=== PATIENT | male | born 1940 | race Caucasian/White ===

== ENCOUNTER 2017-01-17 10:38 | Day surgery (SDC) | payer MEDICARE, OTHER ==
[~2017-01-17] VITALS: Ht 193 cm; Wt 96.0 kg
[2017-01-17] VITALS (8 sets, daily range): BP systolic 138–153; BP diastolic 74–92; PULSE 73–82; RESP 18–20; TEMP 98.1–98.5; O2SAT 96–98
[~2017-01-17 10:38] MED LIST: AMOX875T20 PO; ASPI325T PO; FLUV25TA PO; LORA-392 PO; PRIN10TA PO; RANI150 PO; SYNT25TA PO
[2017-01-17] MEDS ORDERED: CHOL100025 CHEW (11:09)
[2017-01-17] MEDS ORDERED: RANI150T PO (11:09)
[2017-01-17] MEDS ORDERED: FLUT50SP EACH NARE (11:09)
[2017-01-17] MEDS ORDERED: SERT-132 PO (11:09)
[2017-01-17] MEDS ORDERED: VITA500C9 CHEW (11:09)
[2017-01-17] MEDS ORDERED: APPL188C PO (11:09)
[2017-01-17] MEDS ORDERED: LEVO50TA4 PO (11:09)
[2017-01-17] MEDS ORDERED: COLA100C3 PO (11:09)
[2017-01-17] MEDS ORDERED: DOCU100C PO (11:09)
[2017-01-17] MEDS ORDERED: MIRA50TA PO (11:09)
[2017-01-17] MEDS ORDERED: ASPI81CH CHEW (11:09)
[2017-01-17] MEDS ORDERED: META48.54 (11:09)
[2017-01-17] MEDS ORDERED: FISH1000 PO (11:09)
[2017-01-17] MEDS ORDERED: CARB25TA9 PO (11:09)
[2017-01-17] MEDS ORDERED: CENTCHW4 CHEW (11:09)
[2017-01-17] MEDS ORDERED: VANCOMYCIN 1000 MG/NS 250 ML IV SCH ×2 (11:15)
[2017-01-17] MEDS ORDERED: CHLORHEXIDINE GLUCONATE 2 % 1 PACK (2 CLOTHS) TOPICAL PRN (11:15)
[2017-01-17] MEDS ORDERED: NO Heparin, Lovenox, Coumadin at least 12 hours prior to procedure. PRN (11:15)
[2017-01-17] MEDS ORDERED: ceFAZolin 2 GM PREMIX 50 ML IV SCH (11:15)
[2017-01-17] MEDS ORDERED: SODIUM CHLORID 0.9% 500 ML IV PRN (11:15)
[2017-01-17] MEDS ORDERED: MUPIROCIN 2% OINT 1 APPLIC/GM SYR NASAL SCH (11:15)
[2017-01-17] MEDS ORDERED: POVIDONE IODINE 5% (ANTISEPSIS KIT) 4 APPLICATIONS EACH NARE PRN (11:15)
[2017-01-17] MEDS ORDERED: INSULIN HUMAN REGULAR 1,000 UNITS/10 ML VIAL SQ PRN (11:15)
[2017-01-17] MEDS ORDERED: CHLORHEXIDINE GLUCONATE 2 % 1 PACK (2 CLOTHS) TOPICAL SCH (11:15)
[2017-01-17] MEDS ORDERED: Hold AM Insulin & AM Hypoglycemic medications in diabetic patients PRN (11:15)
[2017-01-17] MEDS ORDERED: LACTATED RINGER'S 1000 ML IV PRN (11:15)
[2017-01-17] MEDS ORDERED: POVIDONE IODINE 5% (ANTISEPSIS KIT) 4 APPLICATIONS EACH NARE SCH (11:15)
[2017-01-17] MEDS ORDERED: METOPROLOL TARTRATE 25 MG TAB PO PRN (11:15)
[2017-01-17] MEDS ORDERED: DIAZEPAM 5 MG TAB PO ONE (11:30)
[2017-01-17 11:40] LABS: AUTOMATED NEUTROPHIL # 3.1 TH/MM3 (1.8-7.7); BASOPHIL % 0.7 % (0.0-2.0); EOSINOPHIL # 0.3 TH/MM3 (0-0.4); EOSINOPHIL % 5.7 % (0.0-4.0); HEMO FLAGS DIFF FINAL; LYMPH % 19.3 % (9.0-44.0); LYMPHOCYTE # 0.9 TH/MM3 (1.0-4.8); MEAN CORPUSCULAR HEMOGLOBIN 29.3 PG (27.0-34.0); MONO % 11.7 % (0.0-8.0); NEUT % 62.6 % (16.0-70.0); PLATELET COUNT 131 TH/MM3 (150-450); RED BLOOD COUNT 4.27 MIL/MM3 (4.50-5.90); RED CELL DISTRIBUTION WIDTH 13.9 % (11.6-17.2); WHITE BLOOD COUNT 4.9 TH/MM3 (4.0-11.0)
[2017-01-17 11:48] LABS: APTT (PATIENT) 27.8 SEC (24.3-30.1); PROTHROMBIN TIME - PATIENT 10.5 SEC (9.8-11.6)
[2017-01-17 12:01] LABS: BICARBONATE 29.7 MEQ/L (21.0-32.0); POTASSIUM 4.3 MEQ/L (3.5-5.1)
[2017-01-17] MEDS ORDERED: VANCOMYCIN 500 MG VIAL ONE (12:47)
[2017-01-17] MEDS ORDERED: LIDOCAINE HCL 2% 50 ML VIAL ONE (12:50)
[2017-01-17] MEDS ORDERED: ACETAMINOPHEN/CODEINE 300 MG/30 MG TAB PO PRN (15:15)
[2017-01-17] MEDS ORDERED: MAGNESIUM HYDROXIDE SUSP 30 ML CUP PO PRN (15:15)
[2017-01-17] MEDS ORDERED: ZOLPIDEM TARTRATE 5 MG TAB PO PRN (15:15)
[2017-01-17] MEDS ORDERED: BACITRACIN OINT 0.9 GM PKT TOP PRN (15:15)
[2017-01-17] MEDS ORDERED: ONDANSETRON HCL 4 MG/2 ML VIAL IV PRN (15:15)
--- NOTE | 2017-01-17 16:56 | RADRPT ---
EXAM DATE/TIME: 01/17/2017 15:58 [facility] COMPARISON: No previous studies available for comparison. INDICATIONS : Evaluate for pneumothorax post pacemaker insertion MEDICAL HISTORY : None. SURGICAL HISTORY : None. ENCOUNTER: Initial ACUITY: 1 day PAIN SCORE: 0/10 LOCATION: chest FINDINGS: Pacemaker device is noted with control pack over the left chest. Lungs are focally clear. No pneumoth orax or pleural effusion is evident. Cardiomediastinal contours are satisfactory for moderate rotatio n. CONCLUSION: No pneumothorax post pacer Harvinder Breen MD on January 17, 2017 at 16:53 Board Certified Radiologist. This report was verified electronically.
[2017-01-17] MEDS: ceFAZolin 2 GM PREMIX 50 ML IV SCH (20:31)
[2017-01-18] VITALS (13 sets, daily range): BP systolic 151–154; BP diastolic 83–84; PULSE 71–84; RESP 20; TEMP 97.8; O2SAT 95–96
[2017-01-18] MEDS: ceFAZolin 2 GM PREMIX 50 ML IV SCH (05:19)
--- NOTE | 2017-01-18 11:12 | PD.CARD.PN ---
Subjective Subjective Remarks Patient denies cardiac complains this morning. Dressing removed. Incision site steri strips intact. Device interrogated this morning. (Sadie Napier) Objective Vital Signs / I&O Vital Signs Date Time Temp Pulse Resp B/P Pulse Ox O2 Delivery O2 Flow Rate FiO2 01/18/17 10:00 82 01/18/17 09:00 80 01/18/17 09:00 97.8 75 20 151/84 96 01/18/17 08:00 84 01/18/17 07:00 74 01/18/17 06:29 74 01/18/17 05:00 71 01/18/17 04:12 74 01/18/17 04:10 97.8 77 154/83 95 01/18/17 03:43 72 01/18/17 02:37 74 01/18/17 01:00 79 01/18/17 00:00 78 01/17/17 23:16 73 01/17/17 23:00 98.1 76 138/81 97 01/17/17 22:00 74 01/17/17 21:00 74 01/17/17 20:00 78 01/17/17 19:00 74 01/17/17 19:00 98.1 82 153/92 98 01/17/17 18:00 98.5 76 20 143/74 97 01/17/17 15:22 98 Room Air 01/17/17 11:16 98.5 81 18 148/79 96 I/O 01/17/17 01/17/17 01/17/17 01/18/17 01/18/17 01/18/17 07:00 15:00 23:00 07:00 15:00 23:00 Intake Total 240 ml Output Total 700 ml Balance -460 ml Intake Oral 240 ml Output Urine Total 700 ml Physical Exam GENERAL: Elderly male, sitting up in the bed. NAD. SKIN: Warm and dry. HEAD: Normocephalic. EYES: No scleral icterus. No injection or drainage. NECK: Supple, trachea midline. No JVD or lymphadenopathy. CARDIOVASCULAR: Regular rate and rhythm without murmurs, gallops, or rubs. Dressing removed. Steri strips intact RESPIRATORY: Breath sounds equal bilaterally. No accessory muscle use. GASTROINTESTINAL: Abdomen soft, non-tender, nondistended. MUSCULOSKELETAL: No cyanosis, or edema. BACK: Nontender without obvious deformity. No CVA tenderness. Laboratory Laboratory Tests Test 01/17/17 11:20 White Blood Count 4.9 TH/MM3 Red Blood Count 4.27 MIL/MM3 Hemoglobin 12.5 GM/DL Hematocrit 38.0 % Mean Corpuscular Volume 89.0 FL Mean Corpuscular Hemoglobin 29.3 PG Mean Corpuscular Hemoglobin 33.0 % Concent Red Cell Distribution Width 13.9 % Platelet Count 131 TH/MM3 Mean Platelet Volume 8.2 FL Neutrophils (%) (Auto) 62.6 % Lymphocytes (%) (Auto) 19.3 % Monocytes (%) (Auto) 11.7 % Eosinophils (%) (Auto) 5.7 % Basophils (%) (Auto) 0.7 % Neutrophils # (Auto) 3.1 TH/MM3 Lymphocytes # (Auto) 0.9 TH/MM3 Monocytes # (Auto) 0.6 TH/MM3 Eosinophils # (Auto) 0.3 TH/MM3 Basophils # (Auto) 0.0 TH/MM3 CBC Comment DIFF FINAL Differential Comment Prothrombin Time 10.5 SEC Prothromb Time International 1.0 RATIO Ratio Activated Partial 27.8 SEC Thromboplast Time Sodium Level 139 MEQ/L Potassium Level 4.3 MEQ/L Chloride Level 104 MEQ/L Carbon Dioxide Level 29.7 MEQ/L Anion Gap 5 MEQ/L Blood Urea Nitrogen 19 MG/DL Creatinine 0.96 MG/DL Estimat Glomerular Filtration 76 ML/MIN Rate Random Glucose 94 MG/DL Calcium Level 8.9 MG/DL Imaging Last 72 hours Impressions Chest X-Ray 01/17/17 0000 Signed Impressions: Service Date/Time: January 15:58 - CONCLUSION: No pneumothorax post pacer Harvinder Breen MD (Sadie Napier) Assessment and Plan Assessment and Plan ASSESSMENT 3rd degree AV block, 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 Post procedure CXR negative for PTX PLAN: Ok for discharge Continue home meds Keep incision site clean and DRY. Notify office immediately of any infection concerns Do not life arm above horizontal Follow up in the office soon Assessment and plan discussed with Dr nice (Sadie Napier) Assessment and Plan No Pnx on cxray will see in the next couple of weeks in office (Shamir Nice MD) Sadie Napier Jan 18, 2017 11:12 Shamir Nice MD Jan 19, 2017 13:56
--- NOTE | 2017-01-18 21:34 | EKG ---
Date Performed: 01/17/2017 Time Performed: 15:18:22 PTAGE: 76 years EKG: Paced ventricular rhythm Abnormal ECG PREVIOUS TRACING : 01/17/2017 11.34 DOCTOR: Lincoln Lamb Interpretating Date/Time 01/18/2017 21:33:15
--- NOTE | 2017-01-18 21:34 | EKG ---
Date Performed: 01/17/2017 Time Performed: 11:34:10 PTAGE: 76 years EKG: Sinus rhythm with PAC(s) with 1st degree A-V block Left axis deviation RBBB with left anterior fascicular block S lida previous tracing, no significant change noted Abnormal ECG PREVIOUS TRACING : 10/10/2010 19.12 DOCTOR: Lincoln Lamb Interpretating Date/Time 01/18/2017 21:32:38
--- NOTE | 2017-01-21 09:17 | MP ---
cc: SHAMIR CHAPARRO M.D., DAVID W. M.D. DATE OF SURGERY: 01/17/2017 OPERATION: Dual chamber pacemaker implantation. INDICATIONS FOR PROCEDURE: Symptomatic bradycardia with high grade AV block with near syncopal episodes, dizziness and weakness. CONSENT: consent was obtained and procedure risks of , bleeding, myocardial infarction, perforation, aspiration, pneumothorax, foreseen and unforeseen complications reviewed, The patient fully appeared to understand the risks and benefits. The patient and prepped draped in usual sterile fashion. The left infraclavicular area was anesthetized with Lidocaine using the two stick micropuncture technique with ultrasound. Two guidewires were placed in the venous circulation. The micropuncture guide wire was exchanged for a regular guidewires through the micropuncture dilator. The pacemaker pocket was then fashioned using blunt sharp and cautery dissection. Following this two introducer sheaths were passed over the two guide wires into the venous circulation. Ventricular lead was passed in the right ventricular apex and helical screws were screwed into the apical myocardium. The atrial lead was placed in one position which was found to be unsatisfactory and moved into the area of the left of the right atrial appendage and the helical screw advanced. Satisfactory pacing and sensing parameters were noted in both leads. Both leads were sewn down to pectoralis fascia. The atrial lead had to be repositioned once to get a better sensing and pacing threshold. Following this both leads were connected to respective chamber pulse generator, set screws tightened but not over tightened. The leads were checked again with the pacemaker device and excellent pacing and sensing parameters were noted. CONCLUSION Successful placement of dual-chamber pacemaker. PLAN: We will plan to do a chest x-ray to rule out pneumothorax. The patient will be discharged hopefully tomorrow after being watched overnight, we will follow up with Dr. Abdiaziz Ochoa and the undersigned in due course. Shamir Chaparro MD, FRCP,[facility] DAVIS/reji /2:56 PM /9:13 AM
== END 2017-01-18 12:15 | disposition home or self-care (01) ==
LOC: HDOC 10:38 → HDIC 10:39 → HCIS 18:02 → HDOC 01-18 12:15
PROVIDERS: ATTEND Internal Medicine Cardiovascular Disease
DX: I44.2 Atrioventricular block, complete (principal); I49.5 Sick sinus syndrome; I45.2 Bifascicular block; R42 Dizziness and giddiness; R79.1 Abnormal coagulation profile
CPT/HCPCS: 33208; 71010; 80048; 85025; 85610; 85730; 93005; C1785; C1898; J0690; J3370; J7050

== ENCOUNTER 2017-10-11 16:25 | Emergency (ER) | payer MEDICARE, OTHER ==
[~2017-10-11] VITALS: Ht 177.8 cm; Wt 95.3 kg
[~2017-10-11 16:25] MED LIST changes: -AMOX875T20 PO; +APPL188C PO; +ASPI-516 CHEW; -ASPI325T PO; +CARB25TA9 PO; +CENTCHW4 CHEW; +CHOL100025 CHEW; +COLA100C3 PO; +DOCU100C15 PO; +FISH1000 PO; +FLUT50SP EACH NARE; -FLUV25TA PO; +LEVO50TA4 PO; -LORA-392 PO; +META48.54; +MIRA50TA PO; -PRIN10TA PO; -RANI150 PO; +RANI150T PO; +SERT-132 PO; -SYNT25TA PO; +VITA500C9 CHEW
[2017-10-11 16:31] VITALS: BP 114/64; PULSE 80; RESP 18; TEMP 99; O2SAT 97
[2017-10-11] MEDS ORDERED: APIX5TAB PO (16:46)
[2017-10-11] MEDS ORDERED: ATEN25TA PO (16:46)
--- NOTE | 2017-10-11 17:14 | RADRPT ---
EXAM DATE/TIME: 10/11/2017 16:50 [facility] COMPARISON: CHEST SINGLE AP, January 17, 2017, 15:58. INDICATIONS : Cough. MEDICAL HISTORY : None. SURGICAL HISTORY : Pacemaker. ENCOUNTER: Initial ACUITY: 3 days PAIN SCORE: 0/10 LOCATION: Bilateral chest FINDINGS: Frontal view of the chest demonstrates the lungs to be symmetrically aerated. No focal infiltrates se en. Both hemidiaphragms are well delineated. Moderate cardiomegaly, stable from prior. Descending tho racic aorta is tortuous. Cardiac pacer leads stable in position. CONCLUSION: 1. Stable cardiomegaly. 2. No focal infiltrates seen. Abdiel San MD on October 11, 2017 at 17:10 Board Certified Radiologist. This report was verified electronically.
[2017-10-11] MEDS ORDERED: AZIT250T3 PO (17:26)
[2017-10-11] MEDS ORDERED: BENZ100 PO (17:26)
--- NOTE | 2017-10-11 17:26 | PD ---
HPI Chief Complaint: Cold / Flu Symptoms Time Seen by Provider: 16:56 Travel History International Travel<30 days: No Contact w/Intl Traveler<30days: No Traveled to known affect area: No History of Present Illness HPI 77-year-old male here for evaluation of a cough for 5 days. Producing some sputum today. He denies fever, chills, chest pain, shortness of breath. His primary doctor was unable to see him in the office they referred him here. No sick contacts at home. No foreign travel. Symptom severity is moderate. Symptoms are unrelieved by [id number]-sfejori cough cold symptoms. PFSH Past Medical History Hx Anticoagulant Therapy: Yes (elequis) Anemia: Yes Asthma: No Atrial Fibrillation: Yes Blood Disorders: No Anxiety: Yes Depression: Yes Heart Rhythm Problems: Yes Cancer: No Cardiovascular Problems: Yes High Cholesterol: Yes Chest Pain: No Congestive Heart Failure: No COPD: No Diabetes: No Endocrine: Yes Gastrointestinal Disorders: No GERD: Yes Genitourinary: No Hypertension: Yes Immune Disorder: No Musculoskeletal: Yes (CURRENTLY HAS A BROKEN 5TH TOE ON RIGHT FOOT) Neurologic: Yes ( STATES PT WAS ON SEIZ. 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) Sleep Apnea: No Thyroid Disease: Yes (HYPO) Tetanus Vaccination: < 5 Years Influenza Vaccination: No Past Surgical History Pacemaker: Yes Tonsillectomy: Yes Other Surgery: Yes (PACEMAKER) Social History Alcohol Use: No Tobacco Use: No Substance Use: No Allergies-Medications (Allergen,Severity, Reaction): Coded Allergies: No Known Allergies (Verified Adverse Reaction, Unknown, 10/11/17) Reported Meds & Prescriptions Reported Meds & Active Scripts Active Tessalon Perles (Benzonatate) 100 Mg Cap 100 Mg PO TID PRN 5 Days Azithromycin 250 Mg Tab 250 Mg PO DIRECTED Take 2 tabs (500 mg) on day 1 then 1 tab daily x 4 days. Reported Eliquis (Apixaban) 5 Mg Tab 5 Mg PO BID Atenolol 25 Mg Tab 25 Mg PO DAILY Metamucil (Psyllium Hydrophilic Mucilloid) 48.57 % Pow DAILY Docusate Sodium 100 Mg Cap 100 Mg PO DIRECTED Centrum (Multiple Vitamins W/ Minerals) 1 Chew 1 Tab CHEW BID Fish Oil (Hiddenite-3 Fatty Acids) 1,000 Mg Cap 2,000 Mg PO BID Vitamin D3 (Cholecalciferol) 1,000 Unit Chew 1,000 Mg CHEW DAILY Myrbetriq (Mirabegron) 50 Mg Tab 50 Mg PO DAILY Ranitidine (Ranitidine HCl) 150 Mg Tab 150 Mg PO BID Carbidopa-Levodopa 25-100 Mg Tab 1 Tab PO Q8HR Sertraline (Sertraline HCl) 50 Mg Tab 50 Mg PO HS Levothyroxine (Levothyroxine Sodium) 50 Mcg Tab 50 Mcg PO DAILY Fluticasone Nasal Almyra 50 Mcg/Act Naspr 50 Mcg EACH NARE BID 50 mcg/spray Review of Systems Except as stated in HPI: all other systems reviewed are Neg General / Constitutional: No: Fever Eyes: No: Visual changes HENT: No: Headaches Cardiovascular: No: Chest Pain or Discomfort Respiratory: Positive: Cough Gastrointestinal: No: Abdominal Pain Genitourinary: No: Dysuria Physical Exam Narrative GENERAL: Alert well-developed male. No distress. Nontoxic appearing. SKIN: Warm and dry. HEAD: Atraumatic. Normocephalic. EYES: Pupils equal and round. No scleral icterus. No injection or drainage. ENT: No nasal bleeding or discharge. Mucous membranes pink and moist. NECK: Trachea midline. No JVD. CARDIOVASCULAR: Regular rate and rhythm. RESPIRATORY: No accessory muscle use. Clear to auscultation. Breath sounds equal bilaterally. Patient has a harsh rhonchorous sounding cough. GASTROINTESTINAL: Abdomen soft, non-tender, nondistended. Hepatic and splenic margins not palpable. MUSCULOSKELETAL: Extremities without clubbing, cyanosis, or edema. No obvious deformities. NEUROLOGICAL: Awake and alert. No obvious cranial nerve deficits. Motor grossly within normal limits. PSYCHIATRIC: Appropriate mood and affect; insight and judgment normal. Data Data Last Documented VS Vital Signs Date Time Temp Pulse Resp B/P (MAP) Pulse Ox O2 Delivery O2 Flow Rate FiO2 10/11/17 16:41 Room Air 10/11/17 16:31 99.0 80 18 114/64 (81) 97 Orders Orders Influenzae A/B Antigen (10/11/17 16:41) Chest, Single Ap (10/11/17 ) MDM Medical Decision Making Medical Screen Exam Complete: Yes Emergency Medical Condition: Yes Differential Diagnosis Bronchitis, pneumonia, influenza Narrative Course 77-year-old male here for evaluation of a productive cough. His vital signs are stable. He is nontoxic appearing. He does have a harsh rhonchorous sounding cough. Chest x-ray: Negative for infiltrates Influenza: Negative Given the patient's age and comorbid conditions he will be treated for bronchitis with azithromycin. He is to follow up with his primary doctor for recheck or return if he develops new or worsening symptoms. Diagnosis Primary Impression: Bronchitis Referrals: Primary Care Physician Additional Instructions: Follow-up with your primary doctor. Rest and stay well hydrated. Return if he developed new or worsening symptoms Scripts Benzonatate (Tessalon Perles) 100 Mg Cap 100 MG PO TID Y for COUGH for 5 Days, CAP 0 Refills Prov: Deana Mason 10/11/17 Azithromycin (Azithromycin) 250 Mg Tab 250 MG PO DIRECTED for Infection, #6 TAB 0 Refills Take 2 tabs (500 mg) on day 1 then 1 tab daily x 4 days. Prov: Deana Mason 10/11/17 Disposition: 01 DISCHARGE HOME Condition: Stable Deana Mason Oct 11, 2017 17:26
== END 2017-10-11 17:36 | disposition home or self-care (01) ==
LOC: PHEFT 16:25
DX: J40 Bronchitis, not specified as acute or chronic (principal); E78.00 Pure hypercholesterolemia, unspecified; F32.9 Major depressive disorder, single episode, unspecified; F41.9 Anxiety disorder, unspecified; I10 Essential (primary) hypertension; I48.91 Unspecified atrial fibrillation; K21.9 Gastro-esophageal reflux disease without esophagitis; Z95.0 Presence of cardiac pacemaker
CPT/HCPCS: 71010; 87804; 99284

== ENCOUNTER 2018-06-01 11:44 | Observation (INO) ==
--- NOTE | 2018-06-01 12:14 | ED ---
HPI General Chief complaint: Respiratory Symptoms Stated complaint: Trouble breathing Time Seen by Provider: 06/01/18 12:11 Source: patient Mode of arrival: ambulatory Limitations: no limitations History of Present Illness HPI narrative: Patient is a private patient of Dr. Cole Brennan primary care, patient apparently had sharp chest pain worse with inspiration, felt some shortness of breath as well especially with any type of activity. Was advised to come to the emergency department on Saturday however the patient's daughter was visiting and so he waited until she left for him to come in and be seen in the emergency department. Patient continues to have some dyspnea as well as chest pain worsened by inspiration Onset (ago): day(s) (4) Location: chest Radiation: non-radiation Severity: moderate Severity scale (1-10): 5 Quality: sharp Pain Consistency: intermittent Relieving factors: none Exacerbating factors: other (breathing) Associated symptoms: denies other symptoms Treatments prior to arrival: none Related Data Home Medications Medication Instructions Recorded Confirmed apixaban [Eliquis] 5 mg PO BID 06/01/18 06/01/18 ascorbic acid (vitamin C) [Vitamin 500 mg PO DAILY 06/01/18 06/01/18 C] atenolol 25 mg PO DAILY 06/01/18 06/01/18 clonazepam 0.5 mg PO HS 06/01/18 06/01/18 fluticasone 2 spray INTRANASAL DAILY 06/01/18 06/01/18 furosemide 40 mg PO DAILY 06/01/18 06/01/18 levothyroxine 50 mcg PO DAILY 06/01/18 06/01/18 omega 0-odx-fze-fish oil [Fish Oil] 2,000 mg PO DAILY NEB 06/01/18 06/01/18 potassium chloride 06/01/18 ranitidine HCl 150 mg PO BID 06/01/18 06/01/18 sertraline 50 mg PO DAILY 06/01/18 06/01/18 Allergies Allergy/AdvReac Type Severity Reaction Status Date / Time No Known Allergies Allergy Unverified 06/01/18 12:04 Review of Systems ROS: all other systems reviewed are negative PMFSH History History Provided By: Patient Medical History Medical History Anxiety (Acute) Hypothyroid (Acute) Pacemaker (Acute) Social History Social History Substance History: No History of Abuse Second Hand Smoke Exposure: No Smoking Status: Never smoker How Often Do You Have a Drink Containing Alcohol: Never Immunization History Tetanus Immunization: <5 Years Hx Influenza Vaccine This Season: No Exam Narrative Exam Narrative: GENERAL: Well-nourished, well-developed patient in no apparent distress. SKIN: Warm and dry. HEAD: Atraumatic. Normocephalic. EYES: Pupils equal and round. No scleral icterus. No injection or drainage. ENT: No nasal bleeding or discharge. Mucous membranes pink and moist. NECK: Trachea midline. No JVD. CARDIOVASCULAR: Regular rate and rhythm. no rubs or gallops RESPIRATORY: No accessory muscle use. Clear to auscultation. Breath sounds equal bilaterally. GASTROINTESTINAL: Abdomen soft, non-tender, nondistended. No rebound or guarding MUSCULOSKELETAL: Extremities without clubbing, cyanosis, or edema. No obvious deformities. NEUROLOGICAL: Awake and alert. No obvious cranial nerve deficits. Motor grossly within normal limits. Five out of 5 muscle strength in the arms and legs. Normal speech. PSYCHIATRIC: Appropriate mood and affect; insight and judgment normal. Course Initial Documented Vital Signs Temperature 98 F 06/01/18 11:51 Pulse Rate 80 06/01/18 11:51 Respiratory Rate 20 06/01/18 11:51 Blood Pressure 121/68 06/01/18 11:51 Pulse Oximetry 97 06/01/18 11:51 Last Documented Vital Signs Temperature 98 F 06/01/18 11:51 Pulse Rate 81 06/01/18 12:05 Respiratory Rate 16 06/01/18 12:05 Blood Pressure 130/65 06/01/18 12:05 Pulse Oximetry 97 06/01/18 12:51 Medical Decision Making MDM Narrative Medical decision making narrative: No leukocytosis, no evidence of any left shift, no anemia, decreased platelet count of 137,000 Regulation profile is within normal limits First set of cardiac enzymes are negative Normal kidney liver functions elect lites are all within normal limits CT chest is negative for any pulmonary embolus or pericardial effusion or any pneumonia Medical Screen Exam Complete: Yes Emergency Medical Condition: Yes Differential Diagnosis Differential Diagnosis: STEMI versus non-STEMI versus pulmonary embolus versus pericardial effusion versus pleural effusion versus pneumonia Medical Records Medical records reviewed: Yes I reviewed the patient's medical records. Lab Data Lab results reviewed: Yes I reviewed the patient's lab results. Result diagrams: 06/01/18 12:35 06/01/18 12:35 Lab Results 06/01/18 06/01/18 06/01/18 Range/Units 12:35 12:35 12:35 WBC 5.9 (4.0-11.0) th/mm3 RBC 4.37 L (4.50-5.90) mil/mm3 Hgb 13.0 (13.0-17.0) gm/dL Hct 39.4 (39.0-51.0) % MCV 90.1 (80.0-100.0) fL MCH 29.8 (27.0-34.0) pg MCHC 33.1 (32.0-36.0) % RDW 14.2 (11.6-17.2) % Plt Count 137 L (150-450) th/mm3 MPV 8.7 (7.0-11.0) fL Neut % (Auto) 66.6 (16.0-70.0) % Lymph % (Auto) 18.0 (9.0-44.0) % Pratt % (Auto) 10.5 H (0.0-8.0) % Eos % (Auto) 4.1 H (0.0-4.0) % Baso % (Auto) 0.8 (0.0-2.0) % Neut # (Auto) 4.0 (1.8-7.7) th/mm3 Lymph # (Auto) 1.1 (1.0-4.8) th/mm3 Pratt # (Auto) 0.6 (0.0-0.9) th/mm3 Eos # (Auto) 0.2 (0.0-0.4) th/mm3 Baso # (Auto) 0.0 (0.0-0.2) th/mm3 WBC Differential . Differential Comment Auto diff final PT 10.7 (9.8-11.6) sec INR 1.1 Ratio APTT 29.9 (24.3-30.1) sec Sodium 139 (136-145) meq/L Potassium 4.8 (3.5-5.1) meq/L Chloride 105 (98-107) meq/L Carbon Dioxide 29.6 (21.0-32.0) meq/L Anion Gap 4 L (5-15) meq/L BUN 18 (7-18) mg/dL Creatinine 1.10 (0.60-1.30) mg/dL Estimated GFR 65 L (>89) mL/min Random Glucose 105 (74-106) mg/dL Calcium 8.7 (8.5-10.1) mg/dL Total Bilirubin 0.5 (0.2-1.0) mg/dL AST 22 (15-37) U/L ALT 32 (12-78) U/L Alkaline Phosphatase 73 (45-117) U/L Total Creatine Kinase 121 (39-308) U/L CK-MB (CK-2) 2.2 (0.5-3.6) ng/mL Troponin I Less than 0.02 L (0.02-0.05) ng/mL B-Natriuretic Peptide (0-100) pg/mL Total Protein 7.8 (6.4-8.2) g/dL Albumin 3.5 (3.4-5.0) g/dL 06/01/18 Range/Units 12:35 WBC (4.0-11.0) th/mm3 RBC (4.50-5.90) mil/mm3 Hgb (13.0-17.0) gm/dL Hct (39.0-51.0) % MCV (80.0-100.0) fL MCH (27.0-34.0) pg MCHC (32.0-36.0) % RDW (11.6-17.2) % Plt Count (150-450) th/mm3 MPV (7.0-11.0) fL Neut % (Auto) (16.0-70.0) % Lymph % (Auto) (9.0-44.0) % Pratt % (Auto) (0.0-8.0) % Eos % (Auto) (0.0-4.0) % Baso % (Auto) (0.0-2.0) % Neut # (Auto) (1.8-7.7) th/mm3 Lymph # (Auto) (1.0-4.8) th/mm3 Pratt # (Auto) (0.0-0.9) th/mm3 Eos # (Auto) (0.0-0.4) th/mm3 Baso # (Auto) (0.0-0.2) th/mm3 WBC Differential Differential Comment PT (9.8-11.6) sec INR Ratio APTT (24.3-30.1) sec Sodium (136-145) meq/L Potassium (3.5-5.1) meq/L Chloride (98-107) meq/L Carbon Dioxide (21.0-32.0) meq/L Anion Gap (5-15) meq/L BUN (7-18) mg/dL Creatinine (0.60-1.30) mg/dL Estimated GFR (>89) mL/min Random Glucose (74-106) mg/dL Calcium (8.5-10.1) mg/dL Total Bilirubin (0.2-1.0) mg/dL AST (15-37) U/L ALT (12-78) U/L Alkaline Phosphatase (45-117) U/L Total Creatine Kinase (39-308) U/L CK-MB (CK-2) (0.5-3.6) ng/mL Troponin I (0.02-0.05) ng/mL B-Natriuretic Peptide 86 (0-100) pg/mL Total Protein (6.4-8.2) g/dL Albumin (3.4-5.0) g/dL Imaging Data Radiologist's impression: Chest CTA 06/01/18 12:23 CONCLUSION: 1. No CT evidence for pulmonary artery embolism. 2. Cardiomegaly. 3. Moderate coronary artery calcifications. ECG Data EKG Prior to Arrival: No Attestation: I personally reviewed and interpreted this ECG as follows: Prior ECG tracings: not available for review Interpretation: EKG shows ventricular pacemaker without any evidence of stemi pattern Discharge Plan Discharge Disposition Patient Disposition: 30 Still Patient Discharge Condition Condition: Stable Discharge Details Diagnosis: Chest pain, rule out acute myocardial infarction Physicians Team ED Provider: Ryan Hernandez Primary Care Provider: Abdiaziz Ochoa Rxs /Orders / Referrals /Forms Prescriptions: No Action ranitidine HCl 150 mg Capsule 150 mg PO BID RF: 0 fluticasone 50 mcg/actuation Willis,Suspension 2 spray INTRANASAL DAILY RF: 0 apixaban [Eliquis] 5 mg Tablet 5 mg PO BID RF: 0 furosemide 40 mg Tablet 40 mg PO DAILY RF: 0 clonazepam 0.5 mg Tablet 0.5 mg PO HS RF: 0 atenolol 25 mg Tablet 25 mg PO DAILY RF: 0 potassium chloride 20 mEq Tablet,Er Particles/Crystals RF: 0 ascorbic acid (vitamin C) [Vitamin C] 500 mg Tablet 500 mg PO DAILY RF: 0 sertraline 50 mg Tablet 50 mg PO DAILY RF: 0 omega 2-opc-pru-fish oil [Fish Oil] 1,000 mg (120 mg-180 mg) Capsule 2,000 mg PO DAILY NEB RF: 0 levothyroxine 50 mcg Capsule 50 mcg PO DAILY RF: 0 Status ED Status: With Doctor
[2018-06-01] MEDS ORDERED: Morphine Inj 4 MG/ML Vial IV.PUSH ONE (12:23)
[2018-06-01 13:04] LABS: Baso % (Auto) 0.8 % (0.0-2.0); Eos # (Auto) 0.2 th/mm3 (0.0-0.4); Eos % (Auto) 4.1 % (0.0-4.0); Hematocrit 39.4 % (39.0-51.0); Lymph # (Auto) 1.1 th/mm3 (1.0-4.8); Mean Corpuscular HGB Conc 33.1 % (32.0-36.0); Mean Corpuscular Hemoglobin 29.8 pg (27.0-34.0); Mean Corpuscular Volume 90.1 fL (80.0-100.0); Mean Platelet Volume 8.7 fL (7.0-11.0); Mono # (Auto) 0.6 th/mm3 (0.0-0.9); Mono % (Auto) 10.5 % (0.0-8.0); Neut % (Auto) 66.6 % (16.0-70.0); Platelet Count 137 th/mm3 (150-450); Red Blood Count 4.37 mil/mm3 (4.50-5.90); Red Cell Distribution Width 14.2 % (11.6-17.2); White Blood Count 5.9 th/mm3 (4.0-11.0)
[2018-06-01 13:15] LABS: Activated Partial Thrombo Time 29.9 sec (24.3-30.1); Alanine Aminotransferase 32 U/L (12-78); Albumin 3.5 g/dL (3.4-5.0); Anion Gap 4 meq/L (5-15); Aspartate Aminotransferase 22 U/L (15-37); Blood Urea Nitrogen 18 mg/dL (7-18); Calcium 8.7 mg/dL (8.5-10.1); Carbon Dioxide 29.6 meq/L (21.0-32.0); Chloride 105 meq/L (98-107); Glomerular Filtration Rate 65 mL/min (>89); Glucose,Random 105 mg/dL (74-106); INR 1.1 Ratio; Potassium 4.8 meq/L (3.5-5.1); Prothrombin Time 10.7 sec (9.8-11.6); Sodium 139 meq/L (136-145)
[2018-06-01 13:19] LABS: Alkaline Phosphatase 73 U/L (45-117); Creatine Kinase 121 U/L (39-308); Total Protein 7.8 g/dL (6.4-8.2)
[2018-06-01 13:32] LABS: Creatine Kinase MB 2.2 ng/mL (0.5-3.6)
--- NOTE | 2018-06-01 14:16 | CT ---
EXAM DATE: 06/01/2018 2:05 PM EDT AGE/SEX: 78 years / Male INDICATIONS: Right sided chest pain for three days. CLINICAL DATA: This is the patient's initial encounter. Patient reports that signs and symptoms have been present for 3 days and indicates a pain score of 6/10. MEDICAL/SURGICAL HISTORY: Hypothyroidism. Pacemaker. RADIATION DOSE: 10.05 CTDI (mGy) COMPARISON: POI, CT CHEST W/ CONTRAST, 05/15/2018. . TECHNIQUE: Volumetric scanning was performed using a multi-row detector CT scanner during bolus infu terence of 69 ml Omnipaque 350 (iohexol) nonionic water-soluble contrast as a single exam dose. The burton a was post processed with a variety of visualization algorithms including full volume maximum intensi ty projection and sliding thin slab reformation. Using automated exposure control and adjustment of the mA and/or kV according to patient size, radiation dose was kept as low as reasonably achievable t o obtain optimal diagnostic quality images. DICOM format image data is available electronically for review and comparison. FINDINGS: Pulmonary Arteries: No filling defects are seen in the pulmonary arteries through the segmental vess els. The main pulmonary artery is normal in diameter. Lung: Minimal senescent changes at the lung bases. No significant focal parenchymal abnormality. Pleura: No effusion, significant pleural thickening or pneumothorax. Mediastinum: Dual-lead pacemaker in place. Moderate coronary artery calcifications. Cardiomegaly. No significant pericardial effusion. No significant mediastinal adenopathy. Osseous Structures: Degenerative spondylosis of the thoracic spine. Other: Visulaized upper abdomen is unremarkable. CONCLUSION: 1. No CT evidence for pulmonary artery embolism. 2. Cardiomegaly. 3. Moderate coronary artery calcifications. Electronically signed by: Freddy Herrera MD 06/01/2018 2:15 PM EDT
[2018-06-01] MEDS ORDERED: Acetaminophen 500 MG Tablet PO PRN (15:39)
--- NOTE | 2018-06-01 16:04 | P.HPCA ---
History of Present Illness Primary Care Physician: Abdiaziz Ochoa MD Chief Complaint: Shortness of breath and chest pain History of Present Illness: A 78-year-old male with history of hypertension, hyperlipidemia, atrial fibrillation, pacemaker, sleep apnea that presents to ED with his with complaint of chest pain and shortness of breath has been ongoing for about 6 or 7 months but has worsened recently. More so even over the last week. Was advised to come to the ED about a week ago but did not want to come at that time as his daughter was in town. States that he gets very short of breath after walking about 50 feet. Chest discomfort essentially is always there is a ache. Points to the right side of his chest to look it with the discomfort is. Worse when he takes in a deep breath. Follows . Pacemaker was placed January 2017. States he had a stress test at Dr. Chaparro's office, office H&P prior to the pacemaker placement reports having a nonischemic chemical stress test in 2014. States that he has not really noticed any fluid retention. Denies recent travel. There is family history of CAD. Lifetime non-smoker. - Diagnosis (1) Chest pain (2) Atrial fibrillation (3) Pacemaker (4) Hypertension (5) Hyperlipidemia (6) Sleep apnea Review of Systems General: Patient denies fevers, chills, and recent travel. HEENT: Patient denies headache, sore throat, difficulty swallowing. Cardiovascular: Has the chest discomfort as mentioned above. Denies sensation of heart beating rapidly or irregularly. No syncope. Denies diaphoresis. Respiratory: Shortness of breath for the last 6 months or so but it has worsened more so recently. Chest discomfort is worsened when he takes in a deep breath. Has noticed occasional wheezing. Denies coughing or hemoptysis. GI: Patient denies nausea, vomiting, diarrhea, abdominal pain, bloody stools. Musculoskeletal: Patient denies joint pain or edema. Denies calf pain or edema. Neurovascular: Patient denies numbness, tingling, weakness in extremities. Denies headache. Endocrine: Denies polyuria and polydipsia. Hematologic: Denies easy bruising. Skin: Denies rash or itching. PMFSH - History History Provided By: Patient - Medical History Medical History: Medical History (Last Reviewed 06/01/18 @ 13:53 by Ryan E Lightburn) Anxiety Hypothyroid Pacemaker - Tobacco History Second Hand Smoke Exposure: No Tobacco Use In Past 30 Days: No Smoking Status: Never smoker - Alcohol History How Often Do You Have a Drink Containing Alcohol: Never - Substance Use History Substance History: No History of Abuse - Immunization History Tetanus Immunization: <5 Years Hx Influenza Vaccine This Season: No Medications and Allergies Active Medications: Active Medications Acetaminophen (Tylenol) 500 mg PO Q6H PRN PRN Reason: pain scale 1-5 Hydrocodone Bitart/Acetaminophen ([place] 7.5/325) 1 tab PO Q6H PRN PRN Reason: pain scale 6-10 Albuterol (Duoneb Neb (Prn)) 1 ampul NEB Q4HR NEB PRN PRN Reason: SHORTNESS OF BREATH/WHEEZING Apixaban (Eliquis) 5 mg PO BID FARZAD Ascorbic Acid (Vitamin C) 500 mg PO DAILY FARZAD Atenolol (Tenormin) 25 mg PO DAILY FARZAD Clonazepam (Klonopin) 0.5 mg PO HS FARZAD Clonidine HCl (Catapres) 0.1 mg PO Q6H PRN PRN Reason: SBP >165 OR DBP > 110 Fluticasone Propionate (Flonase Nasal [place]) 2 spray EACH NARE DAILY FARZAD Furosemide (Lasix) 40 mg PO DAILY FARZAD Non-Formulary Medication (Levothyroxine [Levothyroxine]) 50 mcg PO DAILY FARZAD Non-Formulary Medication (Ranitidine Hcl [Ranitidine Hcl]) 150 mg PO BID FARZAD Potassium Chloride (K-Dur) 10 meq PO DAILY FARZAD Sertraline HCl (Zoloft) 50 mg PO DAILY FARZAD Sodium Chloride (Ns Flush) 2 ml IV.FLUSH UNSCH PRN PRN Reason: FLUSH AFTER USING IV ACCESS Last Admin: 06/01/18 12:59 Dose: 2 ml Sodium Chloride (Ns Flush) 2 ml IV.FLUSH BID FARZAD Sodium Chloride (Ns Flush) 2 ml IV.FLUSH PRN PRN PRN Reason: FLUSH AFTER USING IV ACCESS Allergies Allergy/AdvReac Type Severity Reaction Status Date / Time No Known Allergies Allergy Unverified 06/01/18 12:04 Home Medications Medication Instructions Recorded Confirmed Type apixaban [Eliquis] 5 mg PO BID 06/01/18 06/01/18 History ascorbic acid (vitamin C) [Vitamin 500 mg PO DAILY 06/01/18 06/01/18 History C] atenolol 25 mg PO DAILY 06/01/18 06/01/18 History clonazepam 0.5 mg PO HS 06/01/18 06/01/18 History fluticasone 2 spray INTRANASAL DAILY 06/01/18 06/01/18 History furosemide 40 mg PO DAILY 06/01/18 06/01/18 History levothyroxine 50 mcg PO DAILY 06/01/18 06/01/18 History omega 0-vpj-tvo-fish oil [Fish Oil] 2,000 mg PO DAILY NEB 06/01/18 06/01/18 History potassium chloride 06/01/18 History ranitidine HCl 150 mg PO BID 06/01/18 06/01/18 History sertraline 50 mg PO DAILY 06/01/18 06/01/18 History Exam Vital signs: Vital Signs 06/01/18 11:51 06/01/18 12:05 06/01/18 12:51 Temperature 98 F Pulse Rate 80 81 Respiratory Rate 20 16 Blood Pressure 121/68 130/65 Pulse Oximetry 97 98 97 06/01/18 14:35 Temperature Pulse Rate Respiratory Rate Blood Pressure Pulse Oximetry 97 Intake & Output 05/31/18 06/01/18 06/01/18 18:59 06:59 18:59 Weight 97.522 kg Narrative: GENERAL: This is a well-nourished, well-developed patient, in no apparent distress. Patient speaks in clear complete sentences. Patient is pleasant. His is also at the bedside. HEENT: Mild JVD. Left carotid bruit. Head is atraumatic and normocephalic. Neck is supple without lymphadenopathy and trachea is midline. CARDIOVASCULAR: Grade 2 systolic murmur left sternal border. Regular rate and rhythm without gallops, or rubs. RESPIRATORY: Clear to auscultation. Breath sounds equal bilaterally. No wheezes , rales, or rhonchi. Chest wall is nontender. No use of accessory muscles. GASTROINTESTINAL: Abdomen is nontender, nondistended. Abdomen soft. No obvious pulsatile mass or bruit. No CVA tenderness. Strong femoral pulses bilaterally. Normal bowel sounds in all quadrants. MUSCULOSKELETAL: Mild edema bilateral lower extremity. Patient is moving upper and lower extremities freely. No calf tenderness and no Homans sign. Strong pulses in upper and lower extremities. NEUROLOGICAL: Patient is alert and oriented. Cranial nerves 2-12 are grossly intact. No focal deficits and speech is clear. SKIN: No rash and turgor is normal. Results 06/01/18 12:35 06/01/18 12:35 Cardiac Enzymes 06/01/18 06/01/18 Range/Units 12:35 12:35 AST 22 (15-37) U/L CK-MB (CK-2) 2.2 (0.5-3.6) ng/mL Troponin I Less than 0.02 L (0.02-0.05) ng/mL B-Natriuretic Peptide 86 (0-100) pg/mL Coagulation 06/01/18 06/01/18 Range/Units 12:35 12:35 PT 10.7 (9.8-11.6) sec APTT 29.9 (24.3-30.1) sec B-Natriuretic Peptide 86 (0-100) pg/mL CBC 06/01/18 Range/Units 12:35 WBC 5.9 (4.0-11.0) th/mm3 RBC 4.37 L (4.50-5.90) mil/mm3 Hgb 13.0 (13.0-17.0) gm/dL Hct 39.4 (39.0-51.0) % Plt Count 137 L (150-450) th/mm3 Neut # (Auto) 4.0 (1.8-7.7) th/mm3 Lymph # (Auto) 1.1 (1.0-4.8) th/mm3 [place] # (Auto) 0.6 (0.0-0.9) th/mm3 Eos # (Auto) 0.2 (0.0-0.4) th/mm3 Baso # (Auto) 0.0 (0.0-0.2) th/mm3 Comprehensive Metabolic Panel 06/01/18 Range/Units 12:35 Sodium 139 (136-145) meq/L Potassium 4.8 (3.5-5.1) meq/L Chloride 105 (98-107) meq/L Carbon Dioxide 29.6 (21.0-32.0) meq/L BUN 18 (7-18) mg/dL Creatinine 1.10 (0.60-1.30) mg/dL Calcium 8.7 (8.5-10.1) mg/dL AST 22 (15-37) U/L ALT 32 (12-78) U/L Alkaline Phosphatase 73 (45-117) U/L Total Protein 7.8 (6.4-8.2) g/dL Albumin 3.5 (3.4-5.0) g/dL Intake and Output 06/01/18 06/01/18 06/01/18 06:59 14:59 22:59 Other: Weight 97.522 kg Patient Weight 06/02/18 06:59 Weight 97.522 kg EKG interpretations - RI, pacemaker, normal Pacemaker: ventricular pacing w/capture (except when refractory) (EKG reveals ventricular pacing, also atrial fibrillation.) Caprini VTE Risk Assessment Caprini VTE Risk Assessment: Moderate/High Risk (score >= 2) Caprini Risk Assessment Model: Point Value = 1 Point Value = 2 Point Value = 3 Point Value = 5 Age 41-60 Minor surgery BMI > 25 kg/m2 Swollen legs Varicose veins or History of unexplained or recurrent spontaneous Oral contraceptives or hormone replacement Sepsis (< 1 month) Serious lung disease, including pneumonia (< 1 month) Abnormal pulmonary function Acute myocardial infarction Congestive heart failure (< 1 month) History of inflammatory bowel disease Medical patient at bed rest Age 61-74 Arthroscopic surgery Major open surgery (> 45 min) Laparoscopic surgery (> 45 min) Malignancy Confined to bed (> 72 hours) Immobilizing plaster cast Central venous access Age >= 75 History of VTE Family history of VTE Factor V Leiden Prothrombin [id number] Lupus anticoagulant Anticardiolipin antibodies Elevated serum homocysteine Heparin-induced thrombocytopenia Other congenital or acquired thrombophilia Stroke (< 1 month) Elective arthroplasty Hip, pelvis, or leg fracture Acute spinal cord injury (< 1 month) Prophylaxis Regimen: Total Risk Factor Score Risk Level Prophylaxis Regimen 0-1 Low Early ambulation 2 Moderate Order ONE of the following: *Sequential Compression Device (SCD) *Heparin 5000 units SQ BID 3-4 Higher Order ONE of the following medications: *Heparin 5000 units SQ TID *Enoxaparin/Lovenox 40 mg SQ daily (WT < 150 kg, CrCl > 30 mL/min) *Enoxaparin/Lovenox 30 mg SQ daily (WT < 150 kg, CrCl > 10-29 mL/min) *Enoxaparin/Lovenox 30 mg SQ BID (WT < 150 kg, CrCl > 30 mL/min) AND/OR *Sequential Compression Device (SCD) 5 or more Highest Order ONE of the following medications: *Heparin 5000 units SQ TID (Preferred with Epidurals) *Enoxaparin/Lovenox 40 mg SQ daily (WT < 150 kg, CrCl > 30 mL/min) *Enoxaparin/Lovenox 30 mg SQ daily (WT < 150 kg, CrCl > 10-29 mL/min) *Enoxaparin/Lovenox 30 mg SQ BID (WT < 150 kg, CrCl > 30 mL/min) AND *Sequential Compression Device (SCD) Assessment and Plan - Assessment (1) Chest pain Code(s): R07.9 - Chest pain, unspecified Status: Acute (2) Atrial fibrillation Code(s): I48.91 - Unspecified atrial fibrillation Status: Acute (3) Pacemaker Code(s): Z95.0 - Presence of cardiac pacemaker Status: Acute (4) Hypertension Code(s): I10 - Essential (primary) hypertension Status: Acute (5) Hyperlipidemia Code(s): E78.5 - Hyperlipidemia, unspecified Status: Acute (6) Sleep apnea Code(s): G47.30 - Sleep apnea, unspecified Status: Acute - Plan * Chest pain: Patient will continue to have serial cardiac enzymes and EKGs for ruling out purposes. He was seen by Dr. Salinas of cardiology in the chest pain center and believes symptoms may be related to some heart failure. Patient was given Lasix IV 20 mg 1 and continue his p.o. medication. He will spend evening in the chest pain center and will attempt to speak with Dr. Chaparro, likely patient will have a Lexiscan and then if normal would be discharged home with instructions to follow-up with Dr chaparro to optimize medical management. Return to ED for interval issues. * Pacemaker: Continue follow-up with cardiology. * Atrial fibrillation: Patient is on Eliquis. * Hypertension: Continue medication. * Hyperlipidemia: Continue medication. * Sleep apnea: We will have patient on CPAP. Patient is stable at this time. He is agreeable to this plan.
[2018-06-01 17:17] LABS: Creatine Kinase 106 U/L (39-308)
[2018-06-01] MEDS: Ascorbic Acid 500 MG Tablet PO SCH (17:33)
[2018-06-01] MEDS ORDERED: clonazePAM 0.5 MG Tablet PO SCH (21:00)
[2018-06-01] MEDS: Famotidine 20 MG Tablet PO SCH (21:40)
[2018-06-02 01:20] LABS: Creatine Kinase 114 U/L (39-308)
[2018-06-02 04:50] VITALS: RESP 16
[2018-06-02] MEDS ORDERED: Levothyroxine 50 MCG Tablet PO SCH (06:00)
[2018-06-02 08:07] VITALS: BP 110/66; PULSE 82; TEMP 97.6
[2018-06-02 08:11] VITALS: O2SAT 99
[2018-06-02] MEDS: Ascorbic Acid 500 MG Tablet PO SCH (08:57)
[2018-06-02] MEDS: Famotidine 20 MG Tablet PO SCH (08:58)
[2018-06-02] MEDS ORDERED: Atenolol 25 MG Tablet PO SCH (09:00)
[2018-06-02] MEDS ORDERED: Sertraline 50 MG Tablet PO SCH (09:00)
[2018-06-02] MEDS ORDERED: Furosemide 40 MG Tablet PO SCH (09:00)
--- NOTE | 2018-06-02 09:15 | P.PNCA ---
Subjective Interval history: No complaints overnight. Physical Exam Vital signs: Vital Signs 06/01/18 11:51 06/01/18 12:05 06/01/18 12:51 Temperature 98 F Pulse Rate 80 81 Respiratory Rate 20 16 Blood Pressure 121/68 130/65 Pulse Oximetry 97 98 97 06/01/18 14:35 06/01/18 16:30 06/01/18 16:37 Temperature Pulse Rate 80 80 Respiratory Rate 16 Blood Pressure Pulse Oximetry 97 96 06/01/18 17:40 06/01/18 19:05 06/01/18 20:00 Temperature 97.5 F L Pulse Rate 80 80 80 Respiratory Rate 18 18 Blood Pressure 101/61 Pulse Oximetry 96 94 L 06/01/18 23:35 06/02/18 00:00 06/02/18 04:00 Temperature 97.9 F 97.9 F Pulse Rate 80 79 Respiratory Rate 17 16 Blood Pressure 109/61 99/58 L Pulse Oximetry 95 98 95 06/02/18 08:00 06/02/18 08:11 Temperature 97.6 F Pulse Rate 82 Respiratory Rate 16 Blood Pressure 110/66 Pulse Oximetry 98 99 Intake & Output 06/01/18 06/02/18 06/02/18 18:59 06:59 18:59 Output Total 250 / 250 Balance -250 / -250 Weight 97.522 kg 85.9 kg Output: Urine 250 / 250 Other: # Bowel Movements 0 Narrative: Pleasant elderly male easily awakens from sleep in no acute distress. Assessment and Plan - Assessment (1) Chest pain Code(s): R07.9 - Chest pain, unspecified Status: Acute Plan: Call placed to Dr. Chaparro's office for further recommendations. Spoke with Dr. Krysta Paul's PAYamile Winn for discharge today with follow up in office tomorrow at 1030. Patient agreeable to plan of care. Also, discussed with patient's . (2) Atrial fibrillation Code(s): I48.91 - Unspecified atrial fibrillation Status: Acute (3) Pacemaker Code(s): Z95.0 - Presence of cardiac pacemaker Status: Acute (4) Hypertension Code(s): I10 - Essential (primary) hypertension Status: Acute (5) Hyperlipidemia Code(s): E78.5 - Hyperlipidemia, unspecified Status: Acute (6) Sleep apnea Code(s): G47.30 - Sleep apnea, unspecified Status: Acute - Plan * Chest pain: Patient will continue to have serial cardiac enzymes and EKGs for ruling out purposes. He was seen by Dr. Salinas of cardiology in the chest pain center and believes symptoms may be related to some heart failure. Patient was given Lasix IV 20 mg 1 and continue his p.o. medication. He will spend evening in the chest pain center and will attempt to speak with Dr. Chaparro, likely patient will have a Lexiscan and then if normal would be discharged home with instructions to follow-up with Dr chaparro to optimize medical management. Return to ED for interval issues. * Pacemaker: Continue follow-up with cardiology. * Atrial fibrillation: Patient is on Eliquis. * Hypertension: Continue medication. * Hyperlipidemia: Continue medication. * Sleep apnea: We will have patient on CPAP. Patient is stable at this time. He is agreeable to this plan.
--- NOTE | 2018-06-02 14:23 | ECG ---
Date Performed: 06/02/2018 Time Performed: 01:07:48 PTAGE: 78 years EKG: ELECTRONIC VENTRICULAR PACEMAKER ABNORMAL RHYTHM ECG PREVIOUS TRACING : 06/01/2018 21.01 Since previous tracing, no significant change noted DOCTOR: Abdiaziz Cervantes Interpretating Date/Time 06/02/2018 14:23:37
--- NOTE | 2018-06-02 14:26 | ECG ---
Date Performed: 06/01/2018 Time Performed: 21:01:22 PTAGE: 78 years EKG: ELECTRONIC VENTRICULAR PACEMAKER ABNORMAL RHYTHM ECG PREVIOUS TRACING : 06/01/2018 12.06 Since previous tracing, no significant change noted DOCTOR: Abdiaziz Cervantes Interpretating Date/Time 06/02/2018 14:24:56
--- NOTE | 2018-06-02 14:27 | ECG ---
Date Performed: 06/01/2018 Time Performed: 12:06:52 PTAGE: 78 years EKG: ELECTRONIC VENTRICULAR PACEMAKER ABNORMAL RHYTHM ECG PREVIOUS TRACING : 01/17/2017 15.18 Since previous tracing, no significant change noted DOCTOR: Abdiaziz Cervantes Interpretating Date/Time 06/02/2018 14:25:27
== END 2018-06-02 11:10 | disposition home or self-care (01) ==
LOC: NEDA 11:44 → NEPC 11:44 → NEPHCDU 11:44 → NEDA 18:00 → NEPHCDU 18:58

== ENCOUNTER 2018-07-09 00:43 | Observation (INO) ==
[2018-07-09 02:21] LABS: Baso % (Auto) 0.7 % (0.0-2.0); Eos # (Auto) 0.4 th/mm3 (0.0-0.4); Eos % (Auto) 5.6 % (0.0-4.0); Hematocrit 38.2 % (39.0-51.0); Hemoglobin 12.9 gm/dL (13.0-17.0); Lymph # (Auto) 1.3 th/mm3 (1.0-4.8); Lymph % (Auto) 18.3 % (9.0-44.0); Mean Corpuscular HGB Conc 33.7 % (32.0-36.0); Mean Corpuscular Hemoglobin 30.2 pg (27.0-34.0); Mean Corpuscular Volume 89.6 fL (80.0-100.0); Mean Platelet Volume 8.8 fL (7.0-11.0); Mono # (Auto) 0.8 th/mm3 (0.0-0.9); Mono % (Auto) 11.5 % (0.0-8.0); Neut # (Auto) 4.4 th/mm3 (1.8-7.7); Neut % (Auto) 63.9 % (16.0-70.0); Platelet Count 135 th/mm3 (150-450); Red Blood Count 4.27 mil/mm3 (4.50-5.90); Red Cell Distribution Width 15.2 % (11.6-17.2); White Blood Count 6.9 th/mm3 (4.0-11.0)
[2018-07-09 02:38] LABS: Alanine Aminotransferase 62 U/L (12-78); Albumin 3.4 g/dL (3.4-5.0); Anion Gap 11 meq/L (5-15); Aspartate Aminotransferase 57 U/L (15-37); Blood Urea Nitrogen 20 mg/dL (7-18); Calcium 8.2 mg/dL (8.5-10.1); Carbon Dioxide 25.5 meq/L (21.0-32.0); Chloride 105 meq/L (98-107); Glomerular Filtration Rate 56 mL/min (>89); Glucose,Random 102 mg/dL (74-106); Lipase 142 U/L (73-393); Magnesium 1.9 mg/dL (1.5-2.5); Potassium 4.1 meq/L (3.5-5.1); Sodium 141 meq/L (136-145)
[2018-07-09 02:42] LABS: Alkaline Phosphatase 85 U/L (45-117); Total Protein 7.4 g/dL (6.4-8.2); Troponin I 0.03 ng/mL (0.02-0.05)
[2018-07-09 02:46] LABS: INR 1.1 Ratio
[2018-07-09 02:47] LABS: Prothrombin Time 10.8 sec (9.8-11.6)
[2018-07-09 02:55] LABS: Creatine Kinase 100 U/L (39-308)
--- NOTE | 2018-07-09 03:01 | XR ---
EXAM DATE: 07/09/2018 2:03 AM EDT AGE/SEX: 78 years / Male INDICATIONS: Lower chest pain. CLINICAL DATA: This is the patient's initial encounter. Patient reports that signs and symptoms have been present for 1 day and indicates a pain score of 5/10. MEDICAL/SURGICAL HISTORY: None. Pacemaker. COMPARISON: POI, XR CHEST PA AND LAT, 05/06/2018. . FINDINGS: Single AP view the chest. Dual-lead cardiac pacemaker remains in place. Cardiac silhouette is moderat adriano enlarged and unchanged. Lungs are grossly clear. No evidence of pleural effusion or thorax. CONCLUSION: Chronic cardiac silhouette enlargement. No acute cardiopulmonary disease identified. Electronically signed by: Dmitri Lauren MD 07/09/2018 3:00 AM EDT
--- NOTE | 2018-07-09 03:25 | ED ---
HPI General Chief Complaint: Chest Pain Stated Complaint: Cardiac Time Seen by Provider: 07/09/18 02:02 Source: patient Limitations: no limitations History of Present Illness HPI narrative: The patient is a 78 year old male who presents to the [facility] emergency department with a history of chest pain that began prior to arrival. The patient reports that he was preparing for bed when it began at 12: 30 AM. He reports that he was just discharged from the hospital after angioplasty and a stent was placed by Dr. Chaparro. The patient reports that the stent was placed on July 07. The patient reports that the pain is similar to the pain that he had prior to being admitted to the chest pain center. The patient reports that the pain is in the center of his chest and midepigastric area and radiates to bilateral upper quadrants of the abdomen. He reports having associated shortness of breath. He denies having any nausea or diaphoresis. The patient denies taking any aspirin as he reports that he is anticoagulated on Eliquis. On review of systems otherwise, the patient denies having any known recent fevers, cough, congestion, neck pain, diarrhea, urinary symptoms, or neurologic symptoms. Related Data Home Medications Medication Instructions Recorded Confirmed apixaban [Eliquis] 5 mg PO BID 06/01/18 07/09/18 ascorbic acid (vitamin C) [Vitamin 500 mg PO DAILY 06/01/18 07/09/18 C] atenolol 25 mg PO DAILY 06/01/18 07/09/18 clonazepam 0.5 mg PO HS 06/01/18 07/09/18 fluticasone 2 spray INTRANASAL DAILY 06/01/18 07/09/18 furosemide 20 mg PO DAILY 06/01/18 07/09/18 levothyroxine 50 mcg PO DAILY 06/01/18 07/09/18 potassium chloride 10 meq PO DAILY 06/01/18 07/09/18 ranitidine HCl 150 mg PO BID 06/01/18 07/09/18 sertraline 50 mg PO DAILY 06/01/18 07/09/18 Centrum Silver 1 tab PO DAILY 07/07/18 07/09/18 Metamucil 1 packet PO DAILY 07/07/18 07/09/18 Myrbetriq 1 tab PO DAILY 07/07/18 07/09/18 atorvastatin 10 mg PO DAILY 07/07/18 07/09/18 cholecalciferol (vitamin D3) 1,000 unit PO DAILY 07/07/18 07/09/18 [Vitamin D3] aspirin 81 mg PO DAILY 07/09/18 07/09/18 Previous Rx's Medication Instructions Recorded ticagrelor [Brilinta] 90 mg PO BID tab 07/08/18 Allergies Allergy/AdvReac Type Severity Reaction Status Date / Time No Known Allergies Allergy Verified 07/07/18 11:09 Review of Systems ROS: all other systems reviewed are negative [facility] Medical History Medical History Hypothyroidism (Acute) Afib (Acute) Anxiety (Acute) Epilepsy (Acute) GERD (gastroesophageal reflux disease) (Acute) HLD (hyperlipidemia) (Acute) Pacemaker (Acute) SOB (shortness of breath) (Acute) Sleep apnea (Acute) Social History Social History Substance History: No History of Abuse Second Hand Smoke Exposure: No Smoking Status: Never smoker How Often Do You Have a Drink Containing Alcohol: Never Recent Travel in [facility] within the Last 8 Weeks: No Recent Out of Country Travel within the Last 8 Weeks: No Immunization History Tetanus Immunization: <5 Years Hx Influenza Vaccine This Season: No Exam Const General: cooperative, no acute distress and well developed Nutritional Appearance: well nourished Orientation: alert, awake and oriented x3 HENMT Head: normocephalic and atraumatic Nose: no nasal discharge and no epistaxis Mouth: moist mucous membranes Throat: posterior oropharynx normal and uvula midline Eyes Sclera: normal sclerae Pupils: PERRL Neck Neck: no meningeal signs, trachea midline and no JVD Resp Effort & Inspection: no use of accessory muscles Auscultation: clear to auscultation bilaterally Cardio Rate: regular rate Rhythm: regular rhythm Heart Sounds: no gallops, no murmurs and no rubs GI Inspection: non-distended Palpation: soft, no hepatosplenomegaly, no guarding, not rigid and tender ( Reported tenderness on palpation in the right groin near his cardiac catheterization site.) in the RLQ; not in the LLQ, not in the LUQ, not in the RUQ, not at McBurney's point, not periumbilically, not suprapubicly, Whitley's sign negative and with no rebound tenderness Auscultation: normal bowel sounds Back/Spine/Pelvis Back: no CVA tenderness Skin General: dry skin (warm) Neuro General: alert, awake, oriented x3 and other (Grossly nonfocal.) Speech: speech normal Motor: no movement abnormalities noted Extrem General: normal to inspection (2+ pulses in all 4 extremities. No calf tenderness on palpation.), no clubbing, no cyanosis and no edema Psych Mood: congruent mood Affect: normal affect Judgment: judgment good Course Consultations Consultation #1: The patient's case including history, pertinent physical examination findings, and laboratory studies were discussed with Dr. Chase. It was agreed that the patient would be admitted to the hospitalist service. Initial Documented Vital Signs Temperature 98.5 F 07/09/18 00:50 Pulse Rate 80 07/09/18 00:50 Respiratory Rate 14 07/09/18 00:50 Blood Pressure 129/60 07/09/18 00:50 Pulse Oximetry 96 07/09/18 00:50 Last Documented Vital Signs Temperature 97.5 F L 07/09/18 08:13 Pulse Rate 80 07/09/18 08:13 Respiratory Rate 20 07/09/18 08:13 Blood Pressure 143/89 H 07/09/18 08:13 Pulse Oximetry 100 07/09/18 08:13 Medical Decision Making MDM Narrative Medical decision making narrative: During the course of the patient's emergency department visit, the patient's history, examination, and differential diagnosis were reviewed with the patient. The patient was placed on a laboratory monitor with oximetry and frequent blood pressure monitoring. The patient had IV access obtained and blood work sent for analysis. Diagnostic evaluation was started regarding the patient's chest pain. The patient was initially provided aspirin 81 mg p.o. x1, nitroglycerin sublingual every 5 minutes x3 as needed chest pain, nitroglycerin 1 inch to the chest wall. The patient's diagnostic evaluation is remarkable for a white count of 6.9, hemoglobin 12.9, platelets 135 with 11.5 monocytes, PT 10.8, PTT 30, chemistries remarkable for a BUN of 20, GFR 56, calcium 8.2, AST 57, lipase within normal limits, BNP 141. Troponin I is 0.03, CPK 100. Chest x-ray shows chronic cardiac silhouette enlargement, no acute cardiopulmonary disease. I doubt that the patient has a pulmonary embolism as the patient is on Eliquis and was also recently scanned for possible PE on June 01, 2018 and at that time was found to be negative for pulmonary embolism. Given the patient's recent cardiac catheterization with angioplasty and stenting of the RCA, the patient will be admitted to the hospitalist service with consultation to cardiology. The patient's results were discussed with the patient, including the plan of care. I explained that further testing and/ or monitoring is indicated based on the patient's history, examination, and/ or laboratory findings. Therefore, I recommended admission for additional evaluation. The patient expressed understanding and was agreeable with this plan. The patient was admitted to the hospital in guarded condition and sent to a bed under the care of the [facility] service. Medical Screen Exam Complete: Yes Emergency Medical Condition: Yes Differential Diagnosis Differential Diagnosis: Acute coronary syndrome, versus acid reflux, versus anxiety, versus pulmonary embolism Medical Records Medical records reviewed: Yes I reviewed the patient's medical records. Lab Data Lab results reviewed: Yes I reviewed the patient's lab results. Result diagrams: 07/09/18 02:00 07/09/18 02:00 Lab Results 07/09/18 07/09/18 07/09/18 Range/Units 02:00 02:00 02:00 WBC 6.9 (4.0-11.0) th/mm3 RBC 4.27 L (4.50-5.90) mil/mm3 Hgb 12.9 L (13.0-17.0) gm/dL Hct 38.2 L (39.0-51.0) % MCV 89.6 (80.0-100.0) fL MCH 30.2 (27.0-34.0) pg MCHC 33.7 (32.0-36.0) % RDW 15.2 (11.6-17.2) % Plt Count 135 L (150-450) th/mm3 MPV 8.8 (7.0-11.0) fL Neut % (Auto) 63.9 (16.0-70.0) % Lymph % (Auto) 18.3 (9.0-44.0) % [place] % (Auto) 11.5 H (0.0-8.0) % Eos % (Auto) 5.6 H (0.0-4.0) % Baso % (Auto) 0.7 (0.0-2.0) % Neut # (Auto) 4.4 (1.8-7.7) th/mm3 Lymph # (Auto) 1.3 (1.0-4.8) th/mm3 [place] # (Auto) 0.8 (0.0-0.9) th/mm3 Eos # (Auto) 0.4 (0.0-0.4) th/mm3 Baso # (Auto) 0.0 (0.0-0.2) th/mm3 WBC Differential . Differential Comment Auto diff final PT 10.8 (9.8-11.6) sec INR 1.1 Ratio APTT 30.0 (24.3-30.1) sec Sodium 141 (136-145) meq/L Potassium 4.1 (3.5-5.1) meq/L Chloride 105 (98-107) meq/L Carbon Dioxide 25.5 (21.0-32.0) meq/L Anion Gap 11 (5-15) meq/L BUN 20 H (7-18) mg/dL Creatinine 1.25 (0.60-1.30) mg/dL Estimated GFR 56 L (>89) mL/min Random Glucose 102 (74-106) mg/dL Calcium 8.2 L (8.5-10.1) mg/dL Magnesium 1.9 (1.5-2.5) mg/dL Total Bilirubin 0.5 (0.2-1.0) mg/dL AST 57 H (15-37) U/L ALT 62 (12-78) U/L Alkaline Phosphatase 85 (45-117) U/L Total Creatine Kinase 100 (39-308) U/L Troponin I 0.03 (0.02-0.05) ng/mL B-Natriuretic Peptide (0-100) pg/mL Total Protein 7.4 (6.4-8.2) g/dL Albumin 3.4 (3.4-5.0) g/dL Lipase 142 (73-393) U/L 07/09/18 Range/Units 02:00 WBC (4.0-11.0) th/mm3 RBC (4.50-5.90) mil/mm3 Hgb (13.0-17.0) gm/dL Hct (39.0-51.0) % MCV (80.0-100.0) fL MCH (27.0-34.0) pg MCHC (32.0-36.0) % RDW (11.6-17.2) % Plt Count (150-450) th/mm3 MPV (7.0-11.0) fL Neut % (Auto) (16.0-70.0) % Lymph % (Auto) (9.0-44.0) % [place] % (Auto) (0.0-8.0) % Eos % (Auto) (0.0-4.0) % Baso % (Auto) (0.0-2.0) % Neut # (Auto) (1.8-7.7) th/mm3 Lymph # (Auto) (1.0-4.8) th/mm3 [place] # (Auto) (0.0-0.9) th/mm3 Eos # (Auto) (0.0-0.4) th/mm3 Baso # (Auto) (0.0-0.2) th/mm3 WBC Differential Differential Comment PT (9.8-11.6) sec INR Ratio APTT (24.3-30.1) sec Sodium (136-145) meq/L Potassium (3.5-5.1) meq/L Chloride (98-107) meq/L Carbon Dioxide (21.0-32.0) meq/L Anion Gap (5-15) meq/L BUN (7-18) mg/dL Creatinine (0.60-1.30) mg/dL Estimated GFR (>89) mL/min Random Glucose (74-106) mg/dL Calcium (8.5-10.1) mg/dL Magnesium (1.5-2.5) mg/dL Total Bilirubin (0.2-1.0) mg/dL AST (15-37) U/L ALT (12-78) U/L Alkaline Phosphatase (45-117) U/L Total Creatine Kinase (39-308) U/L Troponin I (0.02-0.05) ng/mL B-Natriuretic Peptide 141 H (0-100) pg/mL Total Protein (6.4-8.2) g/dL Albumin (3.4-5.0) g/dL Lipase (73-393) U/L Imaging Data Radiologist's impression: Chest X-Ray 07/09/18 02:03 CONCLUSION: Chronic cardiac silhouette enlargement. No acute cardiopulmonary disease identified. ECG Data Attestation: I personally reviewed and interpreted this ECG as follows: Interpretation: The patient had an EKG done on arrival. The patient's EKG reveals an electronic ventricular paced rhythm. The patient's heart rate is 80 , QRS duration is 186 ms, QTC 496 ms. Discharge Plan Discharge Disposition Patient Disposition: 30 Still Patient Discharge Details Diagnosis: Chest pain, History of coronary angioplasty Physicians Team ED Provider: Leann Koch Primary Care Provider: Abdiaziz Ochoa Attending Provider: Holly Coughlin Other Providers: Shamir Chaparro Status ED Status: Left Department Discharge Information Discharge Date/Time: 07/09/18 05:21
[2018-07-09] MEDS ORDERED: Bisacodyl 10 MG Supp RECTAL PRN (03:50)
[2018-07-09] MEDS: Sod Chloride 0.9% Inj 1,000 ML IV.CONT SCH ×2 (04:31→18:41)
[2018-07-09] MEDS: Levothyroxine 50 MCG Tablet PO SCH (06:02)
--- NOTE | 2018-07-09 08:51 | P.CONCA ---
History of Present Illness Service: Cardiology Consult date: 07/09/18 Requesting Physician: Bam Chase Reason for Consult: Chest pain, recent stent Primary Care Provider: Abdiaziz Ochoa MD Chief Complaint: abdominal pain History of Present Illness: The patient is a 78 year old male known to our practice with a medical history of ASHD s/p RCA stent 07/07/2018 on ASA and Brilinta, atrial fibrillation on Eliquis, heart block s/p st nai dual chamber pacemaker. The patient presented to the hospital yesterday for sudden onset of right upper quadrant pain and lightheadedness. The patient radiates across his right upper quadrat, epigastric region, right lower quadrant and right flank. Pain is worse with a deep breath in. He denies substernal chest pain or pressure, SOB, nausea or vomiting. Right groin has mild amount of ecchymosis. No tenderness to palpation of right groin. No further lightheadedness. Troponin negative. EKG reveals RV paced rhythm. H/H stable. The patient resumed Eliquis last night in addition to ASA and Brilinta Review of Systems All other systems reviewed negative except as stated in HPI PMFSH - History History Provided By: Patient - Medical History Medical History: Medical History (Last Reviewed 07/09/18 @ 18:38 by Bar Peck) History of cardiac pacemaker Hypothyroidism Afib Anxiety Epilepsy GERD (gastroesophageal reflux disease) HLD (hyperlipidemia) Pacemaker SOB (shortness of breath) Sleep apnea - Tobacco History Second Hand Smoke Exposure: No Smoking Status: Never smoker - Alcohol History How Often Do You Have a Drink Containing Alcohol: Never - Substance Use History Substance History: No History of Abuse - Travel History Recent Travel in the [place] Within the Last 8 Weeks: No Recent Travel Out of the Country Within the Last 8 Weeks: No - Immunization History Tetanus Immunization: <5 Years Hx Influenza Vaccine This Season: No Medications and Allergies Allergies Allergy/AdvReac Type Severity Reaction Status Date / Time No Known Allergies Allergy Verified 07/07/18 11:09 Home Medications Medication Instructions Recorded Confirmed Type apixaban [Eliquis] 5 mg PO BID 06/01/18 07/09/18 History ascorbic acid (vitamin C) [Vitamin 500 mg PO DAILY 06/01/18 07/09/18 History C] atenolol 25 mg PO DAILY 06/01/18 07/09/18 History clonazepam 0.5 mg PO HS 06/01/18 07/09/18 History fluticasone 2 spray INTRANASAL DAILY 06/01/18 07/09/18 History furosemide 20 mg PO DAILY 06/01/18 07/09/18 History levothyroxine 50 mcg PO DAILY 06/01/18 07/09/18 History potassium chloride 10 meq PO DAILY 06/01/18 07/09/18 History ranitidine HCl 150 mg PO BID 06/01/18 07/09/18 History sertraline 50 mg PO DAILY 06/01/18 07/09/18 History Centrum Silver 1 tab PO DAILY 07/07/18 07/09/18 History Metamucil 1 packet PO DAILY 07/07/18 07/09/18 History Myrbetriq 1 tab PO DAILY 07/07/18 07/09/18 History atorvastatin 10 mg PO DAILY 07/07/18 07/09/18 History cholecalciferol (vitamin D3) 1,000 unit PO DAILY 07/07/18 07/09/18 History [Vitamin D3] aspirin 81 mg PO DAILY 07/09/18 07/09/18 History Active Medications: Active Medications Al Hydroxide/Mg Hydroxide (Milk Of Magnesia Liq) 30 ml PO Q12H PRN PRN Reason: Mild Constipation Atenolol (Tenormin) 25 mg PO DAILY [facility] Atorvastatin Calcium (Lipitor) 10 mg PO DAILY [facility] Bisacodyl (Dulcolax Supp) 10 mg RECTAL DAILY PRN PRN Reason: SEVERE CONSITIPATION Famotidine (Pepcid) 20 mg PO BID [facility] Furosemide (Lasix) 20 mg PO DAILY [facility] Sodium Chloride (Ns Inj) 1,000 mls @ 65 mls/hr IV.CONT .[id number] [facility] Last Admin: 07/09/18 04:31 Dose: 65 mls/hr Lactulose (Lactulose Liq) 30 ml PO DAILY PRN PRN Reason: SEVERE CONSITIPATION Levothyroxine Sodium (Synthroid) 50 mcg PO DAILY@0700 [facility] Last Admin: 07/09/18 06:02 Dose: 50 mcg Nitroglycerin (Nitrostat Sl) 0.4 mg SL Q5M PRN PRN Reason: CHEST PAIN Last Admin: 07/09/18 02:30 Dose: 0.4 mg Non-Formulary Medication (Myrbetriq) 1 tab PO DAILY [facility] Potassium Chloride (Kcl) 10 meq PO DAILY [facility] Sennosides (Senokot) 17.2 mg PO Q12H PRN PRN Reason: Moderate Constipation Sertraline HCl (Zoloft) 50 mg PO DAILY [facility] Sodium Chloride (Ns Flush) 2 ml IV.FLUSH UNSCH PRN PRN Reason: FLUSH AFTER USING IV ACCESS Ticagrelor (Brilinta) 90 mg PO BID [facility] Exam Vital signs: Vital Signs 07/09/18 00:50 07/09/18 01:01 07/09/18 02:00 Temperature 98.5 F 98.5 F Pulse Rate 80 80 80 Respiratory Rate 14 14 16 Blood Pressure 129/60 125/61 127/76 Pulse Oximetry 96 96 95 07/09/18 04:42 Temperature Pulse Rate 80 Respiratory Rate Blood Pressure 104/59 L Pulse Oximetry 93 L Intake & Output 07/08/18 07/09/18 07/09/18 18:59 06:59 18:59 Intake Total 120 / 120 Balance 120 / 120 Weight 97.34 kg Intake: Other 120 / 120 Other: Other Intake Source Saline Solution # Voids 1 Weight On Admission 97.34 kg - Constitutional no acute distress Comments: Sleep comfortably on arrive, easy to arouse - Routine HEENT Exam Head: Present: normocephalic Eye: Present: EOMI, conjunctivae pink ENT: Present: mucous membranes moist - Routine Neck Exam Present: supple - Routine Respiratory Exam Present: CTA bilaterally - Routine Cardiovascular Exam Present: RRR Comments: PPM, right groin with mild amount of ecchymosis - Routine Abdominal Exam Present: tenderness - Routine Extremities Exam Comments: no edema - Routine Skin Exam Present: ecchymosis - Routine Neurological Exam Present: alert, oriented X3 Results 07/09/18 14:21 07/09/18 02:00 Cardiac Enzymes 07/09/18 07/09/18 Range/Units 02:00 02:00 AST 57 H (15-37) U/L Troponin I 0.03 (0.02-0.05) ng/mL B-Natriuretic Peptide 141 H (0-100) pg/mL Coagulation 07/09/18 07/09/18 Range/Units 02:00 02:00 PT 10.8 (9.8-11.6) sec APTT 30.0 (24.3-30.1) sec B-Natriuretic Peptide 141 H (0-100) pg/mL CBC 07/09/18 Range/Units 02:00 WBC 6.9 (4.0-11.0) th/mm3 RBC 4.27 L (4.50-5.90) mil/mm3 Hgb 12.9 L (13.0-17.0) gm/dL Hct 38.2 L (39.0-51.0) % Plt Count 135 L (150-450) th/mm3 Neut # (Auto) 4.4 (1.8-7.7) th/mm3 Lymph # (Auto) 1.3 (1.0-4.8) th/mm3 [place] # (Auto) 0.8 (0.0-0.9) th/mm3 Eos # (Auto) 0.4 (0.0-0.4) th/mm3 Baso # (Auto) 0.0 (0.0-0.2) th/mm3 Comprehensive Metabolic Panel 07/09/18 Range/Units 02:00 Sodium 141 (136-145) meq/L Potassium 4.1 (3.5-5.1) meq/L Chloride 105 (98-107) meq/L Carbon Dioxide 25.5 (21.0-32.0) meq/L BUN 20 H (7-18) mg/dL Creatinine 1.25 (0.60-1.30) mg/dL Calcium 8.2 L (8.5-10.1) mg/dL AST 57 H (15-37) U/L ALT 62 (12-78) U/L Alkaline Phosphatase 85 (45-117) U/L Total Protein 7.4 (6.4-8.2) g/dL Albumin 3.4 (3.4-5.0) g/dL Intake and Output 07/08/18 07/09/18 07/09/18 22:59 06:59 14:59 Intake Total 120 / 120 Balance 120 / 120 Intake: Other 120 / 120 Other: Other Intake Source Saline Solution # Voids 1 Weight 97.34 kg Weight On Admission 97.34 kg - Imaging and Cardiology Imaging: Impressions Chest X-Ray 07/09/18 02:03 CONCLUSION: Chronic cardiac silhouette enlargement. No acute cardiopulmonary disease identified. EKG results: report reviewed EKG interpretations - MA, pacemaker, normal Pacemaker: ventricular pacing w/capture (except when refractory) Assessment and Plan - Plan Abdominal pain with stable H/H with RUQ, epigastric and RLQ ASHD s/p RCA stent 07/07/2018 on ASA and Brilinta Atrial fibrillation on Eliquis HTN Plan: Hold Eliquis Repeat H/H q 12 Suspect possible small retroperitoneal bleed, will monitor carefully today. Stable cardiac standpoint. Dc tomorrow if remains stable The patient was seen and evaluated by Dr Chaparro who completed face to face encounter, physical exam and participated in evaluation and management. The exam, history, and the medical decision-making described in the above note were completed with the assistance of the mid-level provider. I reviewed and agree with the findings presented. I attest that I had a [id number] encounter with the patient on the same day, and personally performed and documented my assessment and findings in the medical record. Doubt retro peritoneal bleed, seems stable, variable history now chest pain , r/o for MA dc in am if rules out fu with me next week
[2018-07-09] MEDS ORDERED: MYRBETRIQ PO SCH (09:00)
--- NOTE | 2018-07-09 10:04 | P.HP ---
History of Present Illness Service: Hospitalist Primary Care Physician: Abdiaziz Ochoa MD Chief Complaint: right sided chest pain and RUQ pain History of Present Illness: This is a 78-year-old male with past medical history significant for coronary artery disease, ASHD status post RCA stent placement 07/07/[address] Chaparro on aspirin and Brilinta, atrial fibrillation on Eliquis and history of heart block status post [place] Van dual-chamber pacemaker placement who presents to [facility] ED with complaints of right sided chest pain and lightheadedness. Patient states the chest pain radiates to the right upper quadrant. He states that the pain is worse with deep inspiration. He states the pain is similar, although not as intense, as the pain he had prior to his recent stent implant. He denies any associated fever or chills. He denies any substernal chest pain. Denies any shortness of breath, nausea or vomiting. In the ED, initial troponins negative. EKG reveals RV paced rhythm. BNP is slightly elevated 141. CBC unremarkable. Chemistry panel reveals mildly elevated AST 57. Chest x-ray shows chronic cardiac silhouette enlargement with no acute cardiopulmonary process identified. PMFSH - History History Provided By: Patient - Medical History Medical History: Medical History (Last Updated 07/09/18 @ 14:00 by Mariel Diez) History of cardiac pacemaker Hypothyroidism Afib Anxiety Epilepsy GERD (gastroesophageal reflux disease) HLD (hyperlipidemia) Pacemaker SOB (shortness of breath) Sleep apnea - Surgical History Surgical History: Surgical History (Last Reviewed 07/09/18 @ 14:00 by Mariel Diez) H/O heart artery stent - Family History Family History: Family History (Last Updated 07/09/18 @ 14:01 by Mariel Diez) Other Cancer - Social History I have reviewed the patient's Social History: Yes - Tobacco History Second Hand Smoke Exposure: No Smoking Status: Never smoker - Alcohol History How Often Do You Have a Drink Containing Alcohol: Never - Substance Use History Substance History: No History of Abuse - Travel History Recent Travel in the [place] Within the Last 8 Weeks: No Recent Travel Out of the Country Within the Last 8 Weeks: No - Immunization History Tetanus Immunization: <5 Years Hx Influenza Vaccine This Season: No Medications and Allergies Active Medications: Active Medications Al Hydroxide/Mg Hydroxide (Milk Of [place] Liq) 30 ml PO Q12H PRN PRN Reason: Mild Constipation Aspirin (Aspirin Chew) 81 mg PO DAILY [facility] Atenolol (Tenormin) 25 mg PO DAILY [facility] Atorvastatin Calcium (Lipitor) 10 mg PO DAILY [facility] Bisacodyl (Dulcolax Supp) 10 mg RECTAL DAILY PRN PRN Reason: SEVERE CONSITIPATION Famotidine (Pepcid) 20 mg PO BID [facility] Furosemide (Lasix) 20 mg PO DAILY [facility] Sodium Chloride (Ns Inj) 1,000 mls @ 65 mls/hr IV.CONT .[id number] [facility] Last Admin: 07/09/18 04:31 Dose: 65 mls/hr Lactulose (Lactulose Liq) 30 ml PO DAILY PRN PRN Reason: SEVERE CONSITIPATION Levothyroxine Sodium (Synthroid) 50 mcg PO DAILY@0700 [facility] Last Admin: 07/09/18 06:02 Dose: 50 mcg Nitroglycerin (Nitrostat Sl) 0.4 mg SL Q5M PRN PRN Reason: CHEST PAIN Last Admin: 07/09/18 02:30 Dose: 0.4 mg Non-Formulary Medication (Myrbetriq) 1 tab PO DAILY [facility] Potassium Chloride (Kcl) 10 meq PO DAILY [facility] Sennosides (Senokot) 17.2 mg PO Q12H PRN PRN Reason: Moderate Constipation Sertraline HCl (Zoloft) 50 mg PO DAILY [facility] Sodium Chloride (Ns Flush) 2 ml IV.FLUSH UNSCH PRN PRN Reason: FLUSH AFTER USING IV ACCESS Ticagrelor (Brilinta) 90 mg PO BID [facility] Allergies Allergy/AdvReac Type Severity Reaction Status Date / Time No Known Allergies Allergy Verified 07/07/18 11:09 Home Medications Medication Instructions Recorded Confirmed Type apixaban [Eliquis] 5 mg PO BID 06/01/18 07/09/18 History ascorbic acid (vitamin C) [Vitamin 500 mg PO DAILY 06/01/18 07/09/18 History C] atenolol 25 mg PO DAILY 06/01/18 07/09/18 History clonazepam 0.5 mg PO HS 06/01/18 07/09/18 History fluticasone 2 spray INTRANASAL DAILY 06/01/18 07/09/18 History furosemide 20 mg PO DAILY 06/01/18 07/09/18 History levothyroxine 50 mcg PO DAILY 06/01/18 07/09/18 History potassium chloride 10 meq PO DAILY 06/01/18 07/09/18 History ranitidine HCl 150 mg PO BID 06/01/18 07/09/18 History sertraline 50 mg PO DAILY 06/01/18 07/09/18 History Centrum Silver 1 tab PO DAILY 07/07/18 07/09/18 History Metamucil 1 packet PO DAILY 07/07/18 07/09/18 History Myrbetriq 1 tab PO DAILY 07/07/18 07/09/18 History atorvastatin 10 mg PO DAILY 07/07/18 07/09/18 History cholecalciferol (vitamin D3) 1,000 unit PO DAILY 07/07/18 07/09/18 History [Vitamin D3] aspirin 81 mg PO DAILY 07/09/18 07/09/18 History Exam Vital signs: Vital Signs 07/09/18 00:50 07/09/18 01:01 07/09/18 02:00 Temperature 98.5 F 98.5 F Pulse Rate 80 80 80 Respiratory Rate 14 14 16 Blood Pressure 129/60 125/61 127/76 Pulse Oximetry 96 96 95 07/09/18 04:42 07/09/18 08:13 Temperature 97.5 F L Pulse Rate 80 80 Respiratory Rate 20 Blood Pressure 104/59 L 143/89 H Pulse Oximetry 93 L 100 Intake & Output 07/08/18 07/09/18 07/09/18 18:59 06:59 18:59 Intake Total 120 / 120 Balance 120 / 120 Weight 97.34 kg Intake: Other 120 / 120 Other: Other Intake Source Saline Solution # Voids 1 Weight On Admission 97.34 kg Narrative: GENERAL: WDWN elderly male patient, no acute distress. Awake and alert. SKIN: Warm and dry. +mild ecchymosis noted in the right groin HEAD: Atraumatic. Normocephalic. EYES: Pupils equal and round. No scleral icterus. No injection or drainage. ENT: No nasal bleeding or discharge. Mucous membranes pink and moist. NECK: Trachea midline. CARDIOVASCULAR: Regular rate and rhythm. + Mild tenderness elicited to palpation of the right anterior chest wall. RESPIRATORY: No accessory muscle use. Clear to auscultation. Breath sounds equal bilaterally. GASTROINTESTINAL: Abdomen soft, non-tender, nondistended. Hepatic and splenic margins not palpable. MUSCULOSKELETAL: Extremities without clubbing or cyanosis. + 1+ pitting edema bilaterally. NEUROLOGICAL: Awake and alert. No obvious cranial nerve deficits. Motor grossly within normal limits. Able to move all extremities spontaneously. Normal speech. PSYCHIATRIC: Appropriate mood and affect; insight and judgment normal. Results - Labs CBC & Chem 7: 07/09/18 02:00 07/09/18 02:00 Labs: Laboratory Results - last 24 hr 07/09/18 07/09/18 07/09/18 02:00 02:00 02:00 WBC 6.9 RBC 4.27 L Hgb 12.9 L Hct 38.2 L MCV 89.6 MCH 30.2 MCHC 33.7 RDW 15.2 Plt Count 135 L MPV 8.8 Neut % (Auto) 63.9 Lymph % (Auto) 18.3 Murray % (Auto) 11.5 H Eos % (Auto) 5.6 H Baso % (Auto) 0.7 Neut # (Auto) 4.4 Lymph # (Auto) 1.3 Murray # (Auto) 0.8 Eos # (Auto) 0.4 Baso # (Auto) 0.0 WBC Differential . Differential Comment Auto diff final PT 10.8 INR 1.1 APTT 30.0 Sodium 141 Potassium 4.1 Chloride 105 Carbon Dioxide 25.5 Anion Gap 11 BUN 20 H Creatinine 1.25 Estimated GFR 56 L Random Glucose 102 Calcium 8.2 L Magnesium 1.9 Total Bilirubin 0.5 AST 57 H ALT 62 Alkaline Phosphatase 85 Total Creatine Kinase 100 Troponin I 0.03 B-Natriuretic Peptide Total Protein 7.4 Albumin 3.4 Lipase 142 07/09/18 02:00 WBC RBC Hgb Hct MCV MCH MCHC RDW Plt Count MPV Neut % (Auto) Lymph % (Auto) Murray % (Auto) Eos % (Auto) Baso % (Auto) Neut # (Auto) Lymph # (Auto) Murray # (Auto) Eos # (Auto) Baso # (Auto) WBC Differential Differential Comment PT INR APTT Sodium Potassium Chloride Carbon Dioxide Anion Gap BUN Creatinine Estimated GFR Random Glucose Calcium Magnesium Total Bilirubin AST ALT Alkaline Phosphatase Total Creatine Kinase Troponin I B-Natriuretic Peptide 141 H Total Protein Albumin Lipase - Imaging Impressions Chest X-Ray 07/09/18 02:03 CONCLUSION: Chronic cardiac silhouette enlargement. No acute cardiopulmonary disease identified. Caprini VTE Risk Assessment Caprini VTE Risk Assessment: Moderate/High Risk (score >= 2) Caprini Risk Assessment Model: Point Value = 1 Point Value = 2 Point Value = 3 Point Value = 5 Age 41-60 Minor surgery BMI > 25 kg/m2 Swollen legs Varicose veins or History of unexplained or recurrent spontaneous Oral contraceptives or hormone replacement Sepsis (< 1 month) Serious lung disease, including pneumonia (< 1 month) Abnormal pulmonary function Acute myocardial infarction Congestive heart failure (< 1 month) History of inflammatory bowel disease Medical patient at bed rest Age 61-74 Arthroscopic surgery Major open surgery (> 45 min) Laparoscopic surgery (> 45 min) Malignancy Confined to bed (> 72 hours) Immobilizing plaster cast Central venous access Age >= 75 History of VTE Family history of VTE Factor V Leiden Prothrombin [id number] Lupus anticoagulant Anticardiolipin antibodies Elevated serum homocysteine Heparin-induced thrombocytopenia Other congenital or acquired thrombophilia Stroke (< 1 month) Elective arthroplasty Hip, pelvis, or leg fracture Acute spinal cord injury (< 1 month) Prophylaxis Regimen: Total Risk Factor Score Risk Level Prophylaxis Regimen 0-1 Low Early ambulation 2 Moderate Order ONE of the following: *Sequential Compression Device (SCD) *Heparin 5000 units SQ BID 3-4 Higher Order ONE of the following medications: *Heparin 5000 units SQ TID *Enoxaparin/Lovenox 40 mg SQ daily (WT < 150 kg, CrCl > 30 mL/min) *Enoxaparin/Lovenox 30 mg SQ daily (WT < 150 kg, CrCl > 10-29 mL/min) *Enoxaparin/Lovenox 30 mg SQ BID (WT < 150 kg, CrCl > 30 mL/min) AND/OR *Sequential Compression Device (SCD) 5 or more Highest Order ONE of the following medications: *Heparin 5000 units SQ TID (Preferred with Epidurals) *Enoxaparin/Lovenox 40 mg SQ daily (WT < 150 kg, CrCl > 30 mL/min) *Enoxaparin/Lovenox 30 mg SQ daily (WT < 150 kg, CrCl > 10-29 mL/min) *Enoxaparin/Lovenox 30 mg SQ BID (WT < 150 kg, CrCl > 30 mL/min) AND *Sequential Compression Device (SCD) Assessment and Plan - Plan 78-year-old male with past medical history significant for coronary artery disease, ASHD status post RCA stent placement 07/07/[address] Chaparro on aspirin and Brilinta, atrial fibrillation on Eliquis and history of heart block status post [facility] Van dual-chamber pacemaker placement who presents to [facility] ED with complaints of right upper quadrant pain and lightheadedness. 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 Chaparro, appreciate assistance -continue to trend Sanjuana and EKGs -ASA and statin daily -continuous cardiac monitoring -continue on ASA and Brilinta -Nitro prn CP -keep NPO -IVF Atrial fibrillation, rate controlled Hx of pacemaker -Continue on Atenolol 25mg daily -continue to monitor HR Hypertension -Continue patient on atenolol and Lasix per home regimen -Continue to monitor BP and adjust treatment accordingly Hypothyroidism -Continue on home dose of levothyroxine Anemia, normocytic, normochromic Thrombocytopenia -Appears chronic, stable -Continue to monitor CBC as indicated Dyslipidemia -Continue on statin therapy daily Code Status: FULL Discussed Condition With: patient, nursing staff, Dr. Coughlin Discharge Planning: Discharge pending cardiology clearance and clinical improvement
[2018-07-09] MEDS: Atenolol 25 MG Tablet PO SCH (10:09)
[2018-07-09] MEDS: Furosemide 20 MG Tablet PO SCH (10:09)
[2018-07-09] MEDS: Sertraline 50 MG Tablet PO SCH (10:09)
[2018-07-09] MEDS: Famotidine 20 MG Tablet PO SCH ×2 (10:09→21:16)
[2018-07-09] MEDS: Potassium Chloride 10 MEQ ER Capsule PO SCH (10:09)
[2018-07-09 10:55] LABS: Troponin I 0.02 ng/mL (0.02-0.05)
[2018-07-09] MEDS ORDERED: Polyethylene Glycol 3350 17 GM Packet PO ONE (14:45)
[2018-07-09 14:55] LABS: Hematocrit 36.9 % (39.0-51.0); Hemoglobin 12.3 gm/dL (13.0-17.0)
[2018-07-09 15:24] LABS: Creatine Kinase 90 U/L (39-308)
--- NOTE | 2018-07-09 20:59 | ECG ---
Date Performed: 07/09/2018 Time Performed: 00:51:46 PTAGE: 78 years EKG: ELECTRONIC VENTRICULAR PACEMAKER ABNORMAL RHYTHM ECG PREVIOUS TRACING : 07/08/2018 06.05 Since the previous tracing, no significant change noted DOCTOR: Nissa Li Interpretating Date/Time 07/09/2018 20:59:29
[2018-07-09] MEDS ORDERED: clonazePAM 0.5 MG Tablet PO SCH (21:00)
[2018-07-09] MEDS: Senna/Docusate Sodium 8.6/50 MG Tablet PO SCH (21:15)
[2018-07-09 22:11] LABS: Creatine Kinase 98 U/L (39-308)
[2018-07-10 05:23] LABS: Baso % (Auto) 0.6 % (0.0-2.0); Eos # (Auto) 0.4 th/mm3 (0.0-0.4); Hematocrit 37.7 % (39.0-51.0); Hemoglobin 12.6 gm/dL (13.0-17.0); Mean Corpuscular HGB Conc 33.4 % (32.0-36.0); Mean Corpuscular Hemoglobin 29.4 pg (27.0-34.0); Mean Corpuscular Volume 87.9 fL (80.0-100.0); Mean Platelet Volume 8.6 fL (7.0-11.0); Mono # (Auto) 0.7 th/mm3 (0.0-0.9); Mono % (Auto) 12.3 % (0.0-8.0); Neut % (Auto) 65.1 % (16.0-70.0); Platelet Count 130 th/mm3 (150-450); Red Blood Count 4.29 mil/mm3 (4.50-5.90); Red Cell Distribution Width 15.2 % (11.6-17.2); White Blood Count 6.1 th/mm3 (4.0-11.0)
[2018-07-10 05:24] LABS: Hemoglobin 12.7 gm/dL (13.0-17.0)
[2018-07-10 05:47] LABS: Alanine Aminotransferase 50 U/L (12-78)
[2018-07-10 05:48] LABS: Alkaline Phosphatase 87 U/L (45-117); Total Protein 7.6 g/dL (6.4-8.2)
[2018-07-10 05:49] LABS: Albumin 3.4 g/dL (3.4-5.0); Anion Gap 4 meq/L (5-15); Aspartate Aminotransferase 39 U/L (15-37); Blood Urea Nitrogen 17 mg/dL (7-18); Calcium 8.6 mg/dL (8.5-10.1); Carbon Dioxide 31.6 meq/L (21.0-32.0); Chloride 104 meq/L (98-107); Glomerular Filtration Rate 65 mL/min (>89); Glucose,Random 92 mg/dL (74-106); Potassium 4.2 meq/L (3.5-5.1); Sodium 140 meq/L (136-145)
[2018-07-10] MEDS: Levothyroxine 50 MCG Tablet PO SCH (06:03)
--- NOTE | 2018-07-10 07:37 | P.PNCA ---
Subjective Interval history: The patient denies acute cardiac complaints. Denies abdominal pain. Slept well. H/H stable. Medications and Allergies Allergies Allergy/AdvReac Type Severity Reaction Status Date / Time No Known Allergies Allergy Verified 07/07/18 11:09 Home Medications Medication Instructions Recorded Confirmed Type ascorbic acid (vitamin C) [Vitamin 500 mg PO DAILY 06/01/18 07/09/18 History C] atenolol 25 mg PO DAILY 06/01/18 07/09/18 History clonazepam 0.5 mg PO HS 06/01/18 07/09/18 History fluticasone 2 spray INTRANASAL DAILY 06/01/18 07/09/18 History furosemide 20 mg PO DAILY 06/01/18 07/09/18 History levothyroxine 50 mcg PO DAILY 06/01/18 07/09/18 History potassium chloride 10 meq PO DAILY 06/01/18 07/09/18 History ranitidine HCl 150 mg PO BID 06/01/18 07/09/18 History sertraline 50 mg PO DAILY 06/01/18 07/09/18 History Centrum Silver 1 tab PO DAILY 07/07/18 07/09/18 History Metamucil 1 packet PO DAILY 07/07/18 07/09/18 History Myrbetriq 1 tab PO DAILY 07/07/18 07/09/18 History atorvastatin 10 mg PO DAILY 07/07/18 07/09/18 History cholecalciferol (vitamin D3) 1,000 unit PO DAILY 07/07/18 07/09/18 History [Vitamin D3] aspirin 81 mg PO DAILY 07/09/18 07/09/18 History Active Medications: Active Medications Al Hydroxide/Mg Hydroxide (Milk Of Anila Likathryn) 30 ml PO Q12H PRN PRN Reason: Mild Constipation Aspirin (Aspirin Chew) 81 mg PO DAILY [facility] Last Admin: 07/09/18 10:09 Dose: 81 mg Atenolol (Tenormin) 25 mg PO DAILY [facility] Last Admin: 07/09/18 10:09 Dose: 25 mg Atorvastatin Calcium (Lipitor) 10 mg PO DAILY [facility] Last Admin: 07/09/18 10:08 Dose: 10 mg Bisacodyl (Dulcolax Supp) 10 mg RECTAL DAILY PRN PRN Reason: SEVERE CONSITIPATION Clonazepam (Klonopin) 0.5 mg PO HS [facility] Last Admin: 07/09/18 22:40 Dose: 0.5 mg Famotidine (Pepcid) 20 mg PO BID [facility] Last Admin: 07/09/18 21:16 Dose: 20 mg Fluticasone Propionate (Flonase Nasal [place]) 2 spray EACH NARE DAILY [facility] Furosemide (Lasix) 20 mg PO DAILY [facility] Last Admin: 07/09/18 10:09 Dose: 20 mg Lactulose (Lactulose Liq) 30 ml PO DAILY PRN PRN Reason: SEVERE CONSITIPATION Levothyroxine Sodium (Synthroid) 50 mcg PO DAILY@0700 [facility] Last Admin: 07/10/18 06:03 Dose: 50 mcg Nitroglycerin (Nitrostat Sl) 0.4 mg SL Q5M PRN PRN Reason: CHEST PAIN Last Admin: 07/09/18 02:30 Dose: 0.4 mg Non-Formulary Medication (Myrbetriq) 1 tab PO DAILY [facility] Potassium Chloride (Kcl) 10 meq PO DAILY [facility] Last Admin: 07/09/18 10:09 Dose: 10 meq Senna/Docusate Sodium (Kandis-Colace) 1 tab PO BID [facility] Last Admin: 07/09/18 21:15 Dose: 1 tab Sennosides (Senokot) 17.2 mg PO Q12H PRN PRN Reason: Moderate Constipation Sertraline HCl (Zoloft) 50 mg PO DAILY [facility] Last Admin: 07/09/18 10:09 Dose: 50 mg Sodium Chloride (Ns Flush) 2 ml IV.FLUSH UNSCH PRN PRN Reason: FLUSH AFTER USING IV ACCESS Ticagrelor (Brilinta) 90 mg PO BID [facility] Last Admin: 07/09/18 21:15 Dose: 90 mg Vitamin D (Vitamin D3) 1,000 unit PO DAILY [facility] Physical Exam Vital signs: Vital Signs 07/09/18 08:13 07/09/18 12:36 07/09/18 16:47 Temperature 97.5 F L 97.7 F 98.1 F Pulse Rate 80 79 80 Respiratory Rate 20 18 20 Blood Pressure 143/89 H 114/64 121/71 Pulse Oximetry 100 97 96 07/09/18 20:00 07/10/18 00:00 07/10/18 04:00 Temperature 98.5 F 97.8 F 97.6 F Pulse Rate 81 82 80 Respiratory Rate 17 17 17 Blood Pressure 124/68 120/79 120/66 Pulse Oximetry 94 L 98 97 Intake & Output 07/09/18 07/10/18 07/10/18 18:59 06:59 18:59 Intake Total 1000 / 1000 475 / 475 Balance 1000 / 1000 475 / 475 Intake: IV 1000 / 1000 NS Inj 1,000 ML @ 42 mls/hr IV. 1000 / 1000 CONT .[id number] [facility] Rx#:[id number] Oral 475 / 475 Other: Date of Last Bowel Movement 07/09/18 - Constitutional no acute distress - Routine HEENT Exam Head: Present: normocephalic Eye: Present: EOMI - Routine Neck Exam Present: supple - Routine Respiratory Exam Present: CTA bilaterally - Routine Cardiovascular Exam Present: RRR - Routine Abdominal Exam Present: soft Comments: no pain with palpation - Routine Extremities Exam Present: normal capillary refill - Routine Neurological Exam Present: alert, oriented X3 Results 07/10/18 05:04 07/10/18 05:04 Cardiac Enzymes 07/09/18 07/09/18 07/09/18 Range/Units 02:00 02:00 09:55 AST 57 H (15-37) U/L Troponin I 0.03 0.02 (0.02-0.05) ng/mL B-Natriuretic Peptide 141 H (0-100) pg/mL 07/09/18 07/09/18 07/10/18 Range/Units 14:21 21:08 05:04 AST 39 H (15-37) U/L Troponin I Less than 0.02 L Less than 0.02 L (0.02-0.05) ng/mL B-Natriuretic Peptide (0-100) pg/mL Coagulation 07/09/18 07/09/18 Range/Units 02:00 02:00 PT 10.8 (9.8-11.6) sec APTT 30.0 (24.3-30.1) sec B-Natriuretic Peptide 141 H (0-100) pg/mL CBC 07/09/18 07/09/18 07/10/18 Range/Units 02:00 14:21 05:04 WBC 6.9 (4.0-11.0) th/mm3 RBC 4.27 L (4.50-5.90) mil/mm3 Hgb 12.9 L 12.3 L 12.7 L (13.0-17.0) gm/dL Hct 38.2 L 36.9 L 38.0 L (39.0-51.0) % Plt Count 135 L (150-450) th/mm3 Neut # (Auto) 4.4 (1.8-7.7) th/mm3 Lymph # (Auto) 1.3 (1.0-4.8) th/mm3 Sherman # (Auto) 0.8 (0.0-0.9) th/mm3 Eos # (Auto) 0.4 (0.0-0.4) th/mm3 Baso # (Auto) 0.0 (0.0-0.2) th/mm3 07/10/18 Range/Units 05:04 WBC 6.1 (4.0-11.0) th/mm3 RBC 4.29 L (4.50-5.90) mil/mm3 Hgb 12.6 L (13.0-17.0) gm/dL Hct 37.7 L (39.0-51.0) % Plt Count 130 L (150-450) th/mm3 Neut # (Auto) 4.0 (1.8-7.7) th/mm3 Lymph # (Auto) 1.0 (1.0-4.8) th/mm3 Sherman # (Auto) 0.7 (0.0-0.9) th/mm3 Eos # (Auto) 0.4 (0.0-0.4) th/mm3 Baso # (Auto) 0.0 (0.0-0.2) th/mm3 Comprehensive Metabolic Panel 07/09/18 07/10/18 Range/Units 02:00 05:04 Sodium 141 140 (136-145) meq/L Potassium 4.1 4.2 (3.5-5.1) meq/L Chloride 105 104 (98-107) meq/L Carbon Dioxide 25.5 31.6 (21.0-32.0) meq/L BUN 20 H 17 (7-18) mg/dL Creatinine 1.25 1.09 (0.60-1.30) mg/dL Calcium 8.2 L 8.6 (8.5-10.1) mg/dL AST 57 H 39 H (15-37) U/L ALT 62 50 (12-78) U/L Alkaline Phosphatase 85 87 (45-117) U/L Total Protein 7.4 7.6 (6.4-8.2) g/dL Albumin 3.4 3.4 (3.4-5.0) g/dL Intake and Output 07/09/18 07/10/18 07/10/18 22:59 06:59 14:59 Intake Total 1475 / 1475 Balance 1475 / 1475 Intake: IV 1000 / 1000 NS Inj 1,000 ML @ 42 mls/hr IV. 1000 / 1000 CONT .[id number] [facility] Rx#:[id number] Oral 475 / 475 Other: Date of Last Bowel Movement 07/09/18 - Imaging and Cardiology Imaging: Impressions Chest X-Ray 07/09/18 02:03 CONCLUSION: Chronic cardiac silhouette enlargement. No acute cardiopulmonary disease identified. Assessment and Plan - Plan Abdominal pain with stable H/H with RUQ, epigastric and RLQ ASHD s/p RCA stent 07/07/2018 on ASA and Brilinta Atrial fibrillation on Eliquis HTN Plan: Hold Eliquis until seen in the office in Saturday Clear from a cardiac standpoint for discharge. We will follow up in the office on Saturday. The patient was seen and evaluated by Dr Chaparro who completed face to face encounter, physical exam and participated in evaluation and management. The exam, history, and the medical decision-making described in the above note were completed with the assistance of the mid-level provider. I reviewed and agree with the findings presented. I attest that I had a [id number] encounter with the patient on the same day, and personally performed and documented my assessment and findings in the medical record. overall appears to be doing better, will d/c
--- NOTE | 2018-07-10 07:45 | P.PN ---
Subjective Interval history: Follow-up of patient with right-sided chest pain. Patient seen and examined. Patient denies any complaints of right-sided chest or upper abdominal pain. He denies any shortness of breath. Denies any fever chills but states he feels well. Hemoglobin has remained stable. NNAMDI LANGLEY who has cleared patient for discharge from cardiac standpoint. Physical Exam Vital signs: Vital Signs 07/09/18 08:13 07/09/18 12:36 07/09/18 16:47 Temperature 97.5 F L 97.7 F 98.1 F Pulse Rate 80 79 80 Respiratory Rate 20 18 20 Blood Pressure 143/89 H 114/64 121/71 Pulse Oximetry 100 97 96 07/09/18 20:00 07/10/18 00:00 07/10/18 04:00 Temperature 98.5 F 97.8 F 97.6 F Pulse Rate 81 82 80 Respiratory Rate 17 17 17 Blood Pressure 124/68 120/79 120/66 Pulse Oximetry 94 L 98 97 Intake & Output 07/09/18 07/10/18 07/10/18 18:59 06:59 18:59 Intake Total 1000 / 1000 475 / 475 Balance 1000 / 1000 475 / 475 Intake: IV 1000 / 1000 NS Inj 1,000 ML @ 42 mls/hr IV. 1000 / 1000 CONT .[id number] [facility] Rx#:[id number] Oral 475 / 475 Other: Date of Last Bowel Movement 07/09/18 Narrative: GENERAL: WDWN elderly male patient, no acute distress. Awake and alert. Appears comfortable. SKIN: Warm and dry. +mild ecchymosis noted in the right groin HEENT: Atraumatic. Normocephalic. Pupils equal and round. No scleral icterus. No injection or drainage. No nasal bleeding or discharge. Mucous membranes pink and moist. NECK: Trachea midline. CARDIOVASCULAR: Regular rate and rhythm. + Mild tenderness elicited to palpation of the right anterior chest wall. RESPIRATORY: No accessory muscle use. Clear to auscultation. Breath sounds equal bilaterally. GASTROINTESTINAL: Abdomen soft, non-tender, nondistended. +BS. MUSCULOSKELETAL: Extremities without clubbing or cyanosis. + 1+ pitting edema bilaterally. NEUROLOGICAL: Awake and alert. No obvious cranial nerve deficits. Motor grossly within normal limits. Able to move all extremities spontaneously. Normal speech. PSYCHIATRIC: Appropriate mood and affect; insight and judgment normal. Results - Labs CBC & Chem 7: 07/10/18 05:04 07/10/18 05:04 Laboratory Results - last 24 hr 07/09/18 07/09/18 07/09/18 09:55 14:21 14:21 WBC RBC Hgb 12.3 L Hct 36.9 L MCV MCH MCHC RDW Plt Count MPV Neut % (Auto) Lymph % (Auto) [place] % (Auto) Eos % (Auto) Baso % (Auto) Neut # (Auto) Lymph # (Auto) [place] # (Auto) Eos # (Auto) Baso # (Auto) WBC Differential Differential Comment Sodium Potassium Chloride Carbon Dioxide Anion Gap BUN Creatinine Estimated GFR Random Glucose Calcium Total Bilirubin AST ALT Alkaline Phosphatase Total Creatine Kinase 85 90 Troponin I 0.02 Less than 0.02 L Total Protein Albumin 07/09/18 07/10/18 07/10/18 21:08 05:04 05:04 WBC 6.1 RBC 4.29 L Hgb 12.7 L 12.6 L Hct 38.0 L 37.7 L MCV 87.9 MCH 29.4 MCHC 33.4 RDW 15.2 Plt Count 130 L MPV 8.6 Neut % (Auto) 65.1 Lymph % (Auto) 16.0 [place] % (Auto) 12.3 H Eos % (Auto) 6.0 H Baso % (Auto) 0.6 Neut # (Auto) 4.0 Lymph # (Auto) 1.0 [place] # (Auto) 0.7 Eos # (Auto) 0.4 Baso # (Auto) 0.0 WBC Differential . Differential Comment Auto diff final Sodium Potassium Chloride Carbon Dioxide Anion Gap BUN Creatinine Estimated GFR Random Glucose Calcium Total Bilirubin AST ALT Alkaline Phosphatase Total Creatine Kinase 98 Troponin I Less than 0.02 L Total Protein Albumin 07/10/18 05:04 WBC RBC Hgb Hct MCV MCH MCHC RDW Plt Count MPV Neut % (Auto) Lymph % (Auto) [place] % (Auto) Eos % (Auto) Baso % (Auto) Neut # (Auto) Lymph # (Auto) [place] # (Auto) Eos # (Auto) Baso # (Auto) WBC Differential Differential Comment Sodium 140 Potassium 4.2 Chloride 104 Carbon Dioxide 31.6 Anion Gap 4 L BUN 17 Creatinine 1.09 Estimated GFR 65 L Random Glucose 92 Calcium 8.6 Total Bilirubin 0.6 AST 39 H ALT 50 Alkaline Phosphatase 87 Total Creatine Kinase Troponin I Total Protein 7.6 Albumin 3.4 Assessment and Plan - Plan 78-year-old male with past medical history significant for coronary artery disease, ASHD status post RCA stent placement 07/07/[address] Chaparro on aspirin and Brilinta, atrial fibrillation on Eliquis and history of heart block status post [place] dual-chamber pacemaker placement who presents to [facility] ED with complaints of right upper quadrant pain and lightheadedness. Right sided chest pain and RUQ pain in patient with ASHD s/p RCA stent placement 07/07/18 Trops neg x 4 BNP 141 Lipase 142 -Cardiology following, appreciate assistance. Suspect possible small retroperitoneal bleed. Serial H&H has remained stable. Cleared for discharge from cardiac standpoint. Hold Eliquis and fish oil until reevaluated in cardiology clinic as outpatient. -continuous cardiac monitoring -continue on ASA and Brilinta -Nitro prn CP Atrial fibrillation, rate controlled Hx of pacemaker -Continue on Atenolol 25mg daily -continue to monitor HR Hypertension -Continue patient on atenolol and Lasix per home regimen -Continue to monitor BP and adjust treatment accordingly Hypothyroidism -Continue on home dose of levothyroxine Anemia, normocytic, normochromic Thrombocytopenia -Appears chronic, stable -Continue to monitor CBC as indicated Dyslipidemia -Continue on statin therapy daily DVT prophylaxis -bilateral SCD/JACKELYN hose Discharge patient to home Condition on discharge: Stable Heart healthy Diet as tolerated Ad Sirena activity Rx written: Follow-up with primary care physician and cardiology Hold Eliquis and fish oil until re-evaluated by automatic dispenser mechanic as outpatient Code Status: FULL Discussed Condition With: patient, nursing staff, Marci LANGLEY, Dr. Coughlin
[2018-07-10] MEDS: Famotidine 20 MG Tablet PO SCH (08:13)
[2018-07-10] MEDS: Atenolol 25 MG Tablet PO SCH (08:14)
[2018-07-10] MEDS: Potassium Chloride 10 MEQ ER Capsule PO SCH (08:14)
[2018-07-10] MEDS: Sertraline 50 MG Tablet PO SCH (08:14)
[2018-07-10] MEDS: Senna/Docusate Sodium 8.6/50 MG Tablet PO SCH (08:15)
[2018-07-10] MEDS: Furosemide 20 MG Tablet PO SCH (08:15)
[2018-07-10 09:02] VITALS: BP 126/79; PULSE 79; RESP 18; TEMP 97.8; O2SAT 96
--- NOTE | 2018-07-10 22:07 | ECG ---
Date Performed: 07/10/2018 Time Performed: 09:09:59 PTAGE: 78 years EKG: ELECTRONIC VENTRICULAR PACEMAKER ABNORMAL RHYTHM ECG Since the PREVIOUS TRACING , no significant change noted DOCTOR: Nissa Li Interpretating Date/Time 07/10/2018 22:05:44
--- NOTE | 2018-07-10 22:37 | ECG ---
Date Performed: 07/09/2018 Time Performed: 20:09:19 PTAGE: 78 years EKG: ELECTRONIC VENTRICULAR PACEMAKER ABNORMAL RHYTHM ECG PREVIOUS TRACING : 07/09/2018 16.43 Since the previous tracing, no significant change noted DOCTOR: Nissa Li Interpretating Date/Time 07/10/2018 22:36:54
--- NOTE | 2018-07-10 22:45 | ECG ---
Date Performed: 07/09/2018 Time Performed: 16:43:39 PTAGE: 78 years EKG: ELECTRONIC VENTRICULAR PACEMAKER ABNORMAL RHYTHM ECG PREVIOUS TRACING : 07/09/2018 00.51 Since the previous tracing, no significant change noted DOCTOR: Nissa Li Interpretating Date/Time 07/10/2018 22:44:35
== END 2018-07-10 11:35 | disposition home or self-care (01) ==
LOC: NEPE 00:43 → NEDA 00:43 → NEPFCDU 05:52
PROVIDERS: ADMIT Family Medicine; ATTEND Family Medicine